=== PATIENT | female | born 1940 | race Caucasian/White ===

== ENCOUNTER 2020-01-24 10:59 | Observation (INO) ==
[2020-01-24] MEDS ORDERED: BUPIVACAINE 0.25% 30 ML VIAL ONE (11:29)
[2020-01-24] MEDS ORDERED: LIDOCAINE HCL 1% 20 ML VIAL ONE (11:29)
[2020-01-24] MEDS ORDERED: BACITRACIN INJ 50,000 UNIT VIAL ONE (11:30)
--- NOTE | 2020-01-24 11:53 | History & Physical Bridge Note ---
Date of Service January 24, 2020 History & Physical Bridge Note I have examined the patient, reviewed the History & Physical and in the interval since the performance of the History & Physical I have noted the following changes of clinical significance: pt has agreed to a pacemaker; consents signed
--- NOTE | 2020-01-24 11:53 | Pre Anesthesia Assessment ---
Date of Service January 24, 2020 Pre Sedation Assessment Vital Signs Temp Pulse Resp BP Pulse Ox 01/24/20 11:18 36.9 C 72 16 158/91 H 99 Cardiovascular RRR, no murmur, no edema Respiratory normal respiratory effort, lungs clear to auscultation Pre-Sedation Airway Assessment Smoking Status: Never smoker Thyromental Distance: < 3.5 Finger Breadths Mallampati Class: II ASA: ASA3 NPO Status Date of Last Intake of Fluids: 01/23/20 Date of Last Intake of Solid Food: 01/23/20 Procedure Planning Contraindications for Sedation: none Current Medications Reviewed: Yes Notes The planned sedation has been discussed with the patient. Informed Consent was obtained. I have identified the patient, determined the appropriateness of sedation and have assessed the patient immediately prior to the procedure. All medicine(s) and interventions are by my order.
[2020-01-24] MEDS ORDERED: methylPREDNISolone 125 MG/2 ML VIAL ONE (11:58)
[2020-01-24] MEDS ORDERED: DiphenhydrAMINE HCL 50 MG/ML VIAL ONE (11:58)
[2020-01-24] MEDS ORDERED: CEFAZOLIN 250 MG/ML 1 GM VIAL ONE (11:59)
[2020-01-24] MEDS ORDERED: fentaNYL citrate 100 MCG/2 ML VIAL ONE (11:59)
[2020-01-24] MEDS ORDERED: MIDAZOLAM HCL 5 MG/ML 1 ML VIAL ONE (11:59)
[2020-01-24] MEDS ORDERED: NOREPINEPHRINE BITARTRATE 1 MG/ML 4 ML VIAL IV ONE (13:55)
[2020-01-24] MEDS ORDERED: DOPamine 400MG / 250ML D5W IV ONE (13:57)
[2020-01-24] MEDS ORDERED: ICU PROTOCOL FOR HYPERGLYCEMIA PRN (15:09)
--- NOTE | 2020-01-24 15:29 | Post Anesthesia Assessment ---
Date of Service January 24, 2020 Post Sedation Assessment Vital Signs Temp Pulse Resp BP Pulse Ox 01/24/20 15:20 72 14 130/89 97 01/24/20 15:05 76 14 119/70 96 01/24/20 14:50 74 18 108/70 98 01/24/20 11:18 36.9 C 72 16 158/91 H 99 Recovery Score Activity: Moves 4 extremities Respiration: Deep Breath/Cough Circulation: +/-20% PreAnes Value Consciousness: Fully Awake Oxygen Saturation: > 92% On Room Air Post Anesthesia Score: 10 Discharge Sedation Level of Care: Fast Track Phase II Post Sedation Plan On clinical assessment, the patient appears to have tolerated the sedation without complications. Patient is recovering as anticipated. Patient will continue to be monitored by nursing and may be discharged when sedation discharge criteria are met per below protocol. Upon Completions of procedure up to 15 minutes continue every 5 minute vital signs and the P.A.R. score; then discharge to a Phase I or Fast Track to Phase II per the following guidelines: * Discharge Patient to appropriate Phase II area if PAR is 8 or greater or return to pre- procedure baseline. The post - procedure orders will be as directed. * If PAR score is less than 8 or not return to pre-procedure baseline then patient will follow Phase I monitoring till PAR is reached for Phase II. The Phase I may be done in procedure room or may call to secure a Phase I area. * If naloxone or flumazenil are used for reversal, hold in Phase I for continued monitoring from when last reversal dose was given for a minimum of 60 minutes or longer pending the nurse and/or physician discretion of patient condition before discharge to Phase II. Please call the Sedation Physician to re-evaluate and complete post-note for discharge to Phase II area. Do NOT discharge from procedure sedation or Phase 1 until post- sedation evaluation note is complete by procedure /sedation MD Sedation Discharge Instructions to be given to the patient at discharge to home.
--- NOTE | 2020-01-24 15:34 | Operative Report ---
Post Operative Report Pre & Post Diagnosis Intermittent CHB Operation Date: 01/24/20 12:00 <No data on this case meets the specified criteria> I identified the patient and participated in the time-out.: Yes Procedure Operation Date: 01/24/20 12:00 Actual Procedures p Pacer with A/V Leads (Dual) - DO chuck Dang Bundle of his Recording - DO chuck Dang Venogram, Unilateral - Jacki Hugo DO Surgeon Jacki Hugo DO Slate Trimmer none Estimated Blood Loss 20 Findings Consistent with Post-Op Diagnosis Fluids 300cc Specimens none Anesthesia Type MAC Complications none Disposition Disposition: Surgical ICU Indications Intermittent CHB Description of Procedure see official report I attest to the content of the Intraoperative Record and any orders documented therein. Any exceptions are noted below.
[2020-01-24 15:49] LABS: Basophils # (auto) 0.01 K/uL (0-0.2); Basophils % (auto) 0.1 %; Eosinophils # (auto) 0.01 K/uL (0-0.5); Eosinophils % (auto) 0.1 %; Hematocrit (blood only) 41.6 % (37-47); Hemoglobin 13.9 g/dL (12.0-16.0); Lymphocytes # (auto) 0.51 K/uL (1.2-3.4); Lymphocytes % (auto) 7.4 %; Mean Corpuscular Hemoglobin 30.2 pg (25-34); Mean Corpuscular Volume 90.4 fL (80-100); Monocytes # (auto) 0.05 K/uL (0.11-0.59); Monocytes % (auto) 0.7 %; Neutrophils # (auto) 6.29 K/uL (1.4-6.5); Neutrophils % (auto) 91.7 %; Platelet Count 162 K/uL (130-400); RDW Coefficient of Variation 13.4 % (11.5-14.5); RDW Standard Deviation 43.5 fL (36.4-46.3); White Blood Count 6.87 K/uL (4.8-10.8)
[2020-01-24 15:56] LABS: Mean Corpuscular Hgb Conc 33.4 g/dL (32-36)
[2020-01-24 16:03] LABS: INR 1.1 (0.9-1.1); Partial Thromboplastin Ratio 0.9; Partial Thromboplastin Time 24.5 Seconds (21.0-31.0); Prothrombin Time 11.5 Seconds (9.0-12.0)
[2020-01-24 16:07] LABS: Albumin Level 3.8 gm/dl (3.4-5.0); BUN Creatinine Ratio 22.7 (10-20); Calcium 9.5 mg/dl (8.5-10.1); Creatinine Clr Calc Pharmacy 51.1 ml/min; Est GFR (African American) 78.8; Potassium 3.8 mmol/L (3.5-5.1)
[2020-01-24 16:10] LABS: Albumin Globulin Ratio 1.1 (0.9-2); Bilirubin,Total 0.4 mg/dl (0.2-1); Globulin 3.3 gm/dl (2.5-4.0); Total Protein 7.1 gm/dl (6.4-8.2)
--- NOTE | 2020-01-24 17:54 | Critical Care Consultation ---
Date of Consultation January 24, 2020 Assessment & Plan (1) Tachy-barbie syndrome: --Hypotension transient Could be from the conscious sedation medication fentanyl/midazolam which the patient got during the procedure Patient responded to fluids Would continue with the same. If the patient does not respond to fluid then will think about starting the patient on Levophed Patient had echo done which showed ejection fraction 65-70%, no pericardial effusion and normal right side. There are no clear signs of hematoma on physical exam. I will order CBC with BMP to make sure there is no significant drop in hemoglobin. --History of heart block Status post permanent pacemaker placement today. It was a complicated procedure. Good lung sounds are appreciated bilaterally We will order a chest x-ray to rule out pneumothorax. Patient is not complaining of any chest pain I doubt that is 1 of the etiology --History of dyslipidemia Continue with pravastatin --Prophylaxis VTE: IPC's GI: Protonix Lines: Peripheral Diet: Regular Plan: Continue monitoring for blood pressure. Fall precautions. Follow CBC as well as CMP. Follow-up chest x-ray I have personally spent 43 minutes of critical care time in the direct management of this patient. This is a life/limb threatening event. This includes time spent evaluating patient, direct bedside care, chart review, placing orders, interpretation of diagnostic studies, discussion with consultants, patient, and family members, as well as other required patient management activities. This time is exclusive of all separately billable procedures, and teaching time and separate from and in addition to any other critical care service time. Please note the above document was generated using voice recognition software. It may contain grammatical, syntax or spelling errors. (2) Hypotension: History of Present Illness Attending Physician: Jacki Hugo DO History of Present Illness 79-year-old female with past medical history of dyslipidemia, GERD came for same-day procedure to have permanent pacemaker placed in as she has history of heart block. The procedure was prolonged as it was a complicated procedure. During the procedure she got total of 4 mg of Versed and 100 MCG of fentanyl. There was an episode where the patient systolic blood pressure went to 70s. Patient was given bolus fluid 750mL to 1000 L to which she responded. Patient's baseline blood pressure is 110 systolic. Signout was given by Dr. Fountain. Patient was sent to ICU to monitor. At the time of examination in the ICU. Patient denied any dizziness, no headache, no blurry vision, no nausea, no vomiting. She was able to move all her extremities. Denies any blurry vision. Her blood pressure at the time of initiation of examination was systolic in the 89. By the end of examination her systolic blood pressure went down to 73. She was given a bolus of 500 mL fluid at that time and her systolic blood pres sure improved up to 110. Patient is a lifetime non-smoker, no illicit drug use, social alcohol. There was also equivocal possibility of loss of 1.5 cm radiolucent plastic catheter during the procedure. Allergies Allergy/AdvReac Type Severity Reaction Status Date / Time Iodinated Contrast Media Allergy Severe IVP Verified 01/24/20 15:42 DYE~Passed out, ENDED UP IN ICU FOR A WEEK. naproxen [From Aleve] AdvReac Unknown PER PT--MD Verified 01/24/20 15:42 TOLD NOT TO TAKE AGAIN. Home Medications Home Medications Medication Instructions Recorded Confirmed Type [place]-3 1 cap PO TIDM 01/12/18 01/24/20 History loratadine [Claritin] 10 mg PO QAM 01/12/18 01/24/20 History meclizine 12.5 mg PO TID PRN 01/12/18 01/24/20 History pantoprazole 40 mg PO DAILY 01/12/18 01/24/20 History pravastatin 10 mg PO HS 01/12/18 01/24/20 History fluocinolone acetonide oil 1 drp OTIC (EAR) DAILY 01/24/20 01/24/20 History lorazepam 0.5 mg PO DAILY PRN 01/24/20 01/24/20 History polyethylene glycol 3350 [Miralax] 17 g PO DAILY PRN 01/24/20 01/24/20 History Patient History Medical History (Updated 01/24/20 @ 18:01 by Luanne Russell MD) Anemia Claustrophobia GERD (gastroesophageal reflux disease) Hyperlipidemia Hypertension Migraine OVER 30 YEARS AGO Osteoarthritis Stricture of ureter REPAIR LEFT SIDE Syncope LIGHT-HEADED AND FAINTS Vertigo Surgical History History of bladder surgery bladder tack History of bunionectomy RT/LEFT AND RT/LEFT TOE FUSION History of cataract surgery RIGHT History of cholecystectomy History of colonoscopy History of prolapse of bladder History of repair of rotator cuff RT History of tooth extraction History of total abdominal hysterectomy and bilateral salpingo-oophorectomy Family History Father Myocardial infarction Mother Breast cancer Social History Smoking Status: Never smoker Second Hand Exposure: No; Hx Alcohol Use: No Hx Substance Use: No Preferred Language: Tajik Communication Ability: Effective Hospital Aides And Assistants Teacher Required: No Beliefs That Will Affect Care: None Current Living Situation: Spouse 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 Safe at Home: Yes Safety Concerns: Feels Safe At This Time Review of Systems Review of Systems: All systems reviewed & are unremarkable except as noted in HPI & below Physical Exam Physical Exam: Constitutional: No acute distress HEENT: EOMI, PERRLA Respiratory system: Good air entry bilaterally, no wheeze, no rhonchi, no crackles CVS: S1-S2 positive, no murmurs or gallops, positive left-sided pacemaker Abdomen: Soft, nontender, nondistended, positive bowel sounds x4 Extremities: +2 pulses bilaterally radialis/ dorsalis pedis, no cyanosis, no edema Neuro: Awake alert oriented x3 Psych: Normal mood and affect G/U: No Carballo Skin: no rashes, warm and dry Lymphatic: no cervical or axillary lymphadenopathy Results & Data Results & Data ([facility]) Vital Signs (Past 12 Hours) Vital Signs Temp Pulse Pulse Resp BP BP Pulse Ox 01/24/20 16:50 93 H 19 96 01/24/20 16:45 97 H 17 102/59 L 95 01/24/20 16:40 94 H 16 96 01/24/20 16:30 94 H 21 109/71 96 01/24/20 16:20 84 17 97 01/24/20 16:15 85 13 114/68 96 01/24/20 16:10 86 21 96 01/24/20 16:00 88 16 122/78 98 01/24/20 15:55 87 20 01/24/20 15:53 37 C 126/79 01/24/20 15:50 37 C 83 14 122/78 97 01/24/20 15:20 72 14 130/89 97 01/24/20 15:05 76 14 119/70 96 01/24/20 14:50 74 18 108/70 98 01/24/20 11:18 36.9 C 72 16 158/91 H 99 01/24/20 15:39 01/24/20 15:39 Coding Level of Care Code Critical Care 1st 30-74 mins Diagnoses Tachy-barbie syndrome I49.5 Hypotension I95.9 Time Spent (min) 43
[2020-01-24] MEDS ORDERED: SODIUM CHLORIDE 0.9% 1000ML 500 ML IV ONE (18:10)
[2020-01-24 18:50] LABS: Basophils # (auto) 0.01 K/uL (0-0.2); Basophils % (auto) 0.1 %; Hematocrit (blood only) 36.8 % (37-47); Hemoglobin 12.3 g/dL (12.0-16.0); Immature Granulocytes # (auto) 0.01 K/uL (0.00-0.02); Immature Granulocytes % (auto) 0.1 %; Lymphocytes # (auto) 0.47 K/uL (1.2-3.4); Lymphocytes % (auto) 4.7 %; Mean Corpuscular Hemoglobin 29.9 pg (25-34); Mean Corpuscular Hgb Conc 33.4 g/dL (32-36); Mean Corpuscular Volume 89.5 fL (80-100); Mean Platelet Volume 10.7 fL (7.4-10.4); Monocytes # (auto) 0.08 K/uL (0.11-0.59); Monocytes % (auto) 0.8 %; Neutrophils # (auto) 9.51 K/uL (1.4-6.5); Neutrophils % (auto) 94.3 %; Platelet Count 153 K/uL (130-400); RDW Coefficient of Variation 13.2 % (11.5-14.5); RDW Standard Deviation 43.3 fL (36.4-46.3); Red Blood Count 4.11 M/uL (4.2-5.4); White Blood Count 10.08 K/uL (4.8-10.8)
[2020-01-24 19:07] LABS: Albumin Level 3.3 gm/dl (3.4-5.0); BUN Creatinine Ratio 22.3 (10-20); Calcium 8.4 mg/dl (8.5-10.1); Creatinine Clr Calc Pharmacy 48.7 ml/min; Est GFR (African American) 74.5; Est GFR (Non-African American) 64.3; Potassium 3.7 mmol/L (3.5-5.1)
[2020-01-24 19:09] LABS: Albumin Globulin Ratio 1.1 (0.9-2); Bilirubin,Total 0.3 mg/dl (0.2-1); Globulin 2.9 gm/dl (2.5-4.0); Total Protein 6.2 gm/dl (6.4-8.2)
--- NOTE | 2020-01-24 19:27 | Electrocardiogram Report ---
Test Reason : Blood Pressure : / mmHG Vent. Rate : 083 BPM Atrial Rate : 083 BPM P-R Int : 206 ms QRS Dur : 096 ms QT Int : 370 ms P-R-T Axes : 046 -19 204 degrees QTc Int : 434 ms Normal sinus rhythm Minimal voltage criteria for LVH, may be normal variant ( Ham product ) Abnormal ECG When compared with ECG of 15-DEC-2019 07:36, No significant change was found Confirmed by Jarrod Dangelo ([id number]) on 01/24/2020 7:27:29 PM Referred By: Jacki Hugo Confirmed By:Sumit Dangelo
--- NOTE | 2020-01-24 20:31 | XRay Report ---
XR chest 1V portable HISTORY: 79 years-old Female s/p pacer status post placement of a left subclavian pacer COMPARISON: None TECHNIQUE: Portable AP view of the chest FINDINGS: Cardiomediastinal and hilar silhouettes are within normal limits. Mild right hemidiaphragmatic elevat ion. Dual-lead left subclavian pacer. No postprocedural pneumothorax. There is no pleural effusion, a irspace consolidation or overt pulmonary edema. Bones of the chest appear grossly intact. IMPRESSION: Left subclavian pacer. No postprocedural pneumothorax. ACT 112: Negative or not required by law. The above report was generated using voice recognition software. It may contain grammatical, syntax o r spelling errors. Electronically signed by: Chan Chaves M.D. 01/24/2020 8:30 PM
[2020-01-24] MEDS ORDERED: PRAVASTATIN SOD 10 MG TAB PO SCH (21:00)
[2020-01-25 05:04] LABS: Hematocrit (blood only) 36.1 % (37-47); Hemoglobin 12.3 g/dL (12.0-16.0); Mean Corpuscular Hemoglobin 30.4 pg (25-34); Mean Corpuscular Hgb Conc 34.1 g/dL (32-36); Mean Corpuscular Volume 89.1 fL (80-100); Mean Platelet Volume 10.5 fL (7.4-10.4); Platelet Count 157 K/uL (130-400); RDW Coefficient of Variation 13.2 % (11.5-14.5); RDW Standard Deviation 43.1 fL (36.4-46.3); Red Blood Count 4.05 M/uL (4.2-5.4); White Blood Count 9.49 K/uL (4.8-10.8)
[2020-01-25 05:33] LABS: BUN Creatinine Ratio 26.7 (10-20); Calcium 8.8 mg/dl (8.5-10.1); Creatinine Clr Calc Pharmacy 64.2 ml/min; Est GFR (African American) 98.8; Est GFR (Non-African American) 85.2; Magnesium 1.9 mg/dl (1.8-2.4); Phosphorus 3.1 mg/dl (2.5-4.9); Potassium 3.8 mmol/L (3.5-5.1)
--- NOTE | 2020-01-25 07:19 | XRay Report ---
XR chest 1V portable CLINICAL HISTORY: f/u COMPARISON STUDY: Chest radiograph January 24, 2020. FINDINGS: Lung volumes are normal. Lungs are clear. There is no pneumothorax or pleural effusion. Car diac size is normal. Mediastinal contours are normal. There is no evidence for pulmonary edema. Dual- lead left subclavian pacemaker is in place. There is old deformity of the proximal left humerus. IMPRESSION: No acute cardiopulmonary findings. ACT 112: Negative or not required by law. Electronically signed by: Samuel Tapia M.D. 01/25/2020 7:18 AM
--- NOTE | 2020-01-25 08:37 | Critical Care Progress Note ---
Date of Service January 25, 2020 Assessment & Plan (1) Tachy-barbie syndrome: --Hypotension transient Likely from the conscious sedation medication fentanyl/midazolam which the patient got during the procedure Patient responded to fluids Patient had echo done which showed ejection fraction 65-70%, no pericardial effusion and normal right side. There are no clear signs of hematoma on physical exam. CBC did not show any drop in hemoglobin. Chest x-ray did not show any signs of pneumothorax. --History of heart block Status post permanent pacemaker placement today. It was a complex procedure. --History of dyslipidemia Continue with pravastatin --Prophylaxis VTE: IPC's GI: Protonix Lines: Peripheral Diet: Regular Plan: Patient is hemodynamically stable. She did not need any vasopressor support. The only thing she needed was a 500 bolus which was given late yesterday evening. Denies any dizziness. She sat on a chair without any issues. Had a breakfast. H&H is stable. The most likely likelihood of her hypertension was conscious sedation medication. I think patient is stable enough to be sent to a telemetry floor. I have personally spent 31 minutes of critical care time in the direct management of this patient. This is a life/limb threatening event. This includes time spent evaluating patient, direct bedside care, chart review, placing orders, interpretation of diagnostic studies, discussion with consultants, patient, and family members, as well as other required patient management activities. This time is exclusive of all separately billable procedures, and teaching time and separate from and in addition to any other critical care service time. Please note the above document was generated using voice recognition software. It may contain grammatical, syntax or spelling errors. (2) Hypotension: Admission and Anticipated Discharge Date Admission Date: January 24, 2020 Subjective Patient seen and examined at bedside. No acute distress, no adverse events overnight. Patient was sitting on the chair early in the morning. She had her breakfast today on the bed. Patient seen and examined while she was on the bed. Denies any dizziness or lightheadedness. No chest pain. Does complain of some chest tightness. Denies any shortness of breath. No wheezing, no headache, no nausea or vomiting. Blood pressure has been stable since yesterday evening. Review of Systems 2 Review of Systems: All systems reviewed & are unremarkable except as noted in Subjective Physical Exam Physical Exam: Constitutional: No acute distress HEENT: EOMI, PERRLA Respiratory system: Good air entry bilaterally, no wheeze, no rhonchi, no crackles CVS: S1-S2 positive, no murmurs or gallops, positive left-sided pacemaker Abdomen: Soft, nontender, nondistended, positive bowel sounds x4 Extremities: +2 pulses bilaterally radialis/ dorsalis pedis, no cyanosis, no edema Neuro: Awake alert oriented x3 Psych: Normal mood and affect G/U: No Carballo Skin: no rashes, warm and dry Lymphatic: no cervical or axillary lymphadenopathy Results & Data Results & Data ([facility]) Vital Signs (Past 12 Hours) Vital Signs Temp Pulse Resp BP Pulse Ox 01/25/20 07:00 69 17 113/71 99 01/25/20 06:00 81 17 128/68 97 01/25/20 05:10 72 18 120/70 98 01/25/20 05:00 71 18 120/70 95 01/25/20 04:00 36.6 C 71 16 135/66 99 01/25/20 03:00 71 12 117/59 L 95 01/25/20 02:00 60 10 L 100/63 95 01/25/20 01:00 75 14 107/67 97 01/25/20 00:00 36.7 C 76 14 110/67 94 01/24/20 23:00 69 15 117/67 97 01/24/20 22:30 74 12 116/63 94 01/24/20 22:00 70 16 104/63 94 01/24/20 21:30 74 21 106/67 96 01/24/20 21:00 74 19 114/63 94 01/24/20 20:45 36.7 C 79 22 103/69 96 01/25/20 04:51 01/25/20 04:51 Coding Level of Care Code Critical Care 1st 30-74 mins Diagnoses Tachy-barbie syndrome I49.5 Hypotension I95.9 Time Spent (min) 31
--- NOTE | 2020-01-25 08:56 | Discharge Summary ---
Date of Service January 25, 2020 Admission HPI Per Admitting Provider Pt admitted for elective ppm due to intermittent CHB Admission Exam Per Admitting Provider aaox3, NAD NC/AT, EOMI Supple No JVD Nrl S1/S2, No murmur CTA b/l no w/r/r soft nt/nd no LE edema b/l skin intact no focal deficits Principal Diagnosis Intermittent CHB s/p ppm Discharge Exam aaox3, NAD NC/AT, EOMI Supple No JVD Nrl S1/S2, No murmur CTA b/l no w/r/r soft nt/nd no LE edema b/l skin intact no focal deficits left pectoral incision intact, no hematoma mild ecchymosis Discharge Data Allergies Allergy/AdvReac Type Severity Reaction Status Date / Time Iodinated Contrast Media Allergy Severe IVP Verified 01/24/20 15:42 DYE~Passed out, ENDED UP IN ICU FOR A WEEK. naproxen [From Aleve] AdvReac Unknown PER PT--MD Verified 01/24/20 15:42 TOLD NOT TO TAKE AGAIN. Consultations 01/24/20 15:09 Consult Case Management - Discharge Planning Routine 01/24/20 18:16 Consult Mechanic Driver Routine Procedures Performed Operation Date: 01/24/20 12:00 Actual Procedures p Pacer with A/V Leads (Dual) - DO chuck Dang Bundle of his Recording - DO chuck Dang Venogram, Unilateral - Jacki Hugo DO Ordered Studies 01/24/20 07:24 CL Cath Imgs for PACS use only Routine 01/24/20 08:15 EP Lab Images for PACS ONCE Hospital Course (1) Tachy-barbie syndrome: (2) Intermittent complete heart block: Total Time Total Time Spent Total Time Spent (In Minutes): 40 Total Time Includes: Examination of the Patient, Discharge Planning, Medication Reconciliation and Other Discharge Plan Discharge Items Patient Disposition: Home - Self-Care Reason For Visit: DUAL CHAMBER PACER Discharge Diagnosis: Intermittent CHB s/p ppm Condition on Discharge: Good Activity: As commented below Activity Comment: do not lift the left elbow over the left shoulder for 1 month Lifting: No more than 10 pounds Lifting Comment: do not lift more than 10 pounds for 2 weeks Bathing: Keep incision dry Bathing Comment: keep dressing on and dry until wound check Driving/Machine Use: Resume 1 day after discharge Non-emergency contact: Braille Teacher Call non-emergency contact if: you have any medication questions Follow-up/Referrals: Katie Acosta DO [Primary Care Provider] - Diet: Heart Healthy Addtl Attending Provider Instructions: device and wound check at [facility] next week-the office will call you with a time and day Pending Studies at Discharge: No Stand-Alone Forms: My [facility], Smoking Cessation Medications and DC Order Prescriptions: Continued meclizine 12.5 mg Tablet 12.5 mg PO TID PRN (Reason: Vertigo) RF: 0 pravastatin 10 mg Tablet 10 mg PO HS RF: 0 pantoprazole 40 mg Tablet,Delayed Release (Dr/Ec) 40 mg PO DAILY RF: 0 loratadine [Claritin] 10 mg Tablet 10 mg PO QAM RF: 0 [place]-3 350 mg-235 mg- 90 mg-597 mg Capsule,Delayed Release(Dr/Ec) 1 cap PO TIDM RF: 0 fluocinolone acetonide oil 0.01 % Drops 1 drp otic (ear) DAILY RF: 0 lorazepam 0.5 mg Tablet 0.5 mg PO DAILY PRN (Reason: Anxiety) RF: 0 polyethylene glycol 3350 [Miralax] 17 gram Powder In Packet 17 g PO DAILY PRN (Reason: Constipation) RF: 0 Discharge Orders: Discharge Order (Routine); Ordered 01/25/20 Ordered By: Jacki Hugo Admission Data Admit Date/Time: 01/24/20 12:15 Attending Provider: Jacki Hugo Admit Provider: Quentin Fountain Primary Care Provider: Katie Acosta Other Providers: Luanne Russell
[2020-01-25] MEDS ORDERED: PANTOprazole 40 MG TAB PO SCH (09:00)
--- NOTE | 2020-02-02 13:57 | Operative Report (OR) ---
DATE OF OPERATION: 01/24/2020 PREOPERATIVE DIAGNOSES: Intermittent complete heart block and syncope. POSTOPERATIVE DIAGNOSES: Intermittent complete heart block and syncope. PROCEDURE: Dual chamber rate responsive permanent pacemaker under fluoroscopic guidance. SURGEON: Jacki Hugo DO. ASSISTANTS: None. ANESTHESIA: Monitored conscious sedation administered under my supervision by Elizabeth Minor. Start time 1213, end time 1440. Total of 4 mg of Versed, 100 mcg of fentanyl. INTRAVENOUS FLUIDS: 300 mL. ADDITIONAL MEDICINES: 50 mg of Benadryl and 125 mg of Solu-Medrol. INTRAVENOUS CONTRAST: 10 mL. ANTIBIOTICS: 1 gram of Ancef provided. ESTIMATED BLOOD LOSS: 20 mL. URINE OUTPUT: None. SPECIMENS: None. FINDINGS: See below. DRAINS: None. INDICATIONS: This is a 79-year-old female with past medical history for sinus bradycardia, hypertension, vasovagal syncope, paroxysmal atrial fibrillation, hyperlipidemia, gastroesophageal reflux disease, vertigo and intermittent complete heart block. Due to the syncope and intermittent complete heart block, she was recommended a dual chamber pacemaker. CONSENT: Consent was obtained prior to the patient going into the electrophysiology lab. The patient was informed of the risks, benefits and alternatives to procedure. Risks include but not limited to sudden cardiac , cardiac arrhythmias, cerebrovascular accident, myocardial infarction, injury to the blood vessels, chamber of the heart, lung, bleeding, and infection. The patient understood these risks and agreed to the procedure as planned. Informed consent was obtained. DESCRIPTION OF THE PROCEDURE: The patient was brought into the electrophysiology lab in a fasting state. She was connected to continuous heel nailing machine operator. Timeout was performed to ensure patient identity and procedure correctly. The patient was prepped and draped over the left infraclavicular space in normal surgical standard fashion. Monitored conscious sedation was given throughout the procedure for patient's comfort level. [place] precautions were maintained throughout the procedure. 10 mL of 1% lidocaine-bupivacaine mixture were given in the left deltopectoral groove. Incision was made in the left deltopectoral groove. Blunt dissection was performed down to identify the cephalic vein. Cephalic vein was identified and isolated using 0 silk ties. The vein was nicked with an 11 blade and a guidewire was inserted without any resistance. Of note, when I was inserting the guidewire, I think the plastic tip to the guidewire ended up being advanced in through the venous system as well. It was unable to be seen under fluoroscopy, but I did do a peripheral venogram just to see if I could see anything, but I could not. An 8-Namibian sheath was inserted over the guidewire without any resistance. Guidewire and dilator removed. A second wire was advanced through the sheath to allow for retained venous access. Sheath was removed, flushed, and then it was reinserted over one of the guidewires. The guidewire and dilator removed and the right ventricular lead was advanced into right ventricle, positioned in right ventricular apex. I did have to reposition it a few times. Ultimately, we had adequate pacing and sensing thresholds and no diaphragmatic stimulation with high output pacing. The 8-Namibian sheath was peeled away and lead was fixated to pectoralis muscle using 0 silk suture. Of note, I initially did try doing a left bundle lead, but I was not getting very adequately on the septum and since there was a delay in the procedure looking for the plastic cheater tip of the guidewire, I have to just do a regular standard. A second 7-Namibian sheath was inserted over the retained guidewire without any resistance. Guidewire and dilator removed. The right atrial lead was then advanced into right atrium and positioned into the right atrial appendage under fluoroscopic guidance. There was adequate pacing and sensing thresholds and no diaphragmatic stimulation with high output pacing. The 7-Namibian sheath was peeled away and lead was fixated to pectoralis muscle using 0 silk suture. A pacemaker pocket was created using blunt dissection over the pectoralis muscle within the pectoral fascia. The pocket was flushed with copious amounts of bacitracin saline wash and inspected for hemostasis. Pulse generator was then attached to the lead making sure that the pins were in appropriate position, passed set screws and set screws were all tightened. The pulse generator was then placed in the TYRX pouch followed then by being placed in the pocket, making sure the leads were lying flat beneath the device. The incision was then closed in a 3-layer fashion using a 2-0 Vicryl interrupted suture followed by 3-0 Vicryl interrupted suture, followed by 4-0 Monocryl running stitch and Dermabond was applied followed by a Telfa and micropore dressing. EQUIPMENT: 1. Pulse generator is a [employer] [place] XT DR RADHA Rodgers [id number], serial number [id number]. 2. TYRX pouch is reference number [id number], lot number [id number], expiration 07/25/2020. 3. Right atrial lead Medtronic 5076-52 cm, serial number [id number]. 4. Right ventricular lead, Medtronic 5076-58 cm, serial number [id number]. INTRAOPERATIVE TESTIN. Right atrial lead: P waves 2.6 millivolts, impedance 437 ohms, threshold 0.5 volts at 0.4 milliseconds. 2. Right ventricular lead: R waves 7.5 millivolts, impedance 969 ohms, threshold 1.25 volts at 0.4 milliseconds. FINAL MEASUREMENTS THROUGH THE DEVICE: 1. Right atrial lead: P waves 3.6 millivolts, impedance 456 ohms, threshold 0.5 volts at 0.4 milliseconds. 2. Right ventricular lead: R waves 7 millivolts, impedance 912 ohms, threshold 0.75 volts at 0.4 milliseconds. FINAL PARAMETERS: MVP-R 60/130, right atrial amplitude 3.5 volts, pulse width 0.4 milliseconds, sensitivity 0.3 millivolts. Right ventricular amplitude 3.5 volts, pulse width 0.4 milliseconds, sensitivity 1.2 millivolts. IMPRESSION: Successful implantation of a dual chamber rate responsive permanent pacemaker under fluoroscopic guidance secondary to intermittent complete heart block. PLAN: Monitor patient overnight, 12-lead ECG, chest x-ray. She is not allowed to lift left elbow or left shoulder for 1 month. She cannot lift more than 10 pounds with the left arm for 2 weeks. She is to leave the dressing on and dry until her wound check next week. I attest to the content of the Intraoperative Record and any orders documented therein. Any exceptions are noted below. GWYN
== END 2020-01-25 09:45 | disposition home or self-care (01) ==
LOC: EP 10:59 → 1E 12:15 → INTOOBSV 12:15

== ENCOUNTER 2021-07-12 05:59 | Observation (INO) ==
[2021-07-12 06:24] LABS: Basophils # (auto) 0.02 K/uL (0-0.2); Basophils % (auto) 0.4 %; Hematocrit (blood only) 40.8 % (37-47); Hemoglobin 13.8 g/dL (12.0-16.0); Lymphocytes # (auto) 1.18 K/uL (1.2-3.4); Lymphocytes % (auto) 23.7 %; Mean Corpuscular Hemoglobin 30.7 pg (25-34); Mean Corpuscular Hgb Conc 33.8 g/dL (32-36); Mean Corpuscular Volume 90.9 fL (80-100); Mean Platelet Volume 10.3 fL (7.4-10.4); Monocytes % (auto) 10.1 %; Neutrophils # (auto) 3.07 K/uL (1.4-6.5); Neutrophils % (auto) 61.8 %; Platelet Count 158 K/uL (130-400); RDW Coefficient of Variation 13.2 % (11.5-14.5); RDW Standard Deviation 43.6 fL (36.4-46.3); Red Blood Count 4.49 M/uL (4.2-5.4); White Blood Count 4.97 K/uL (4.8-10.8)
[2021-07-12] MEDS ORDERED: SODIUM CHLORIDE 0.9% 1000ML 500 ML IV ONE (06:45)
[2021-07-12] MEDS ORDERED: ASPIRIN CHEW 324 MG PO STA (06:45)
--- NOTE | 2021-07-12 06:45 | Emergency Department Note ---
Impression & Plan Chest pain, Vertigo ED Provider Note NAME: ALEX CLARK AGE: 80 SEX: F : 1940 ARRIVES VIA: Ambulance INFORMANT: Patient, ED PROVIDER(S): Armando Cobb DO CHIEF COMPLAINT: Chest pain and dizziness HPI: Patient is a 80-year-old female with a past medical history of tachybradycardia syndrome, SVT, heart block with ICD in place, hypertension, hyperlipidemia, migraines, GERD and vertigo that presents the ER for dizziness. She notes that she woke up this morning around 4 AM with this. She took some meclizine. Shortly after that started and some midsternal chest tightness. That has now resolved. She denies any arm pain or jaw pain. She notes she has been getting some chest tightness off and on for the past 3 weeks. It has been gradually getting worse. Initially says that this has been constant but she further elaborates that it is present nearly every day but comes and goes intermittently. She was given Ativan and Zofran in route. ROS: See above HPI for pertinent positives & negatives. A total of 10 systems reviewed and were otherwise negative. PAST MEDICAL HISTORY:See Below PAST SURGICAL HISTORY:See Below FAMILY HISTORY:See Below SOCIAL HISTORY:See Below HOME MEDICATIONS:See Below ALLERGIES:See Below VITALS:See Below PHYSICAL EXAMINATION: GENERAL: Sitting up in bed, alert, well appearing, well nourished, no distress, non-toxic EYE EXAM: normal conjunctiva. PERRL and EOM's intact. OROPHARYNX: no exudate, no erythema, lips, buccal mucosa, and tongue normal and mucous membranes are moist NECK: supple, no nuchal rigidity, no adenopathy, non-tender LUNGS: Clear to auscultation. Normal chest wall mechanics HEART: no murmurs, S1 normal and S2 normal ABDOMEN: abdomen soft, non-tender, normo-active bowel sounds, no masses, no rebound or guarding. BACK: Back is symmetrical on inspection and there is no deformity, no midline tenderness, no CVA tenderness. SKIN: no rashes and no bruising UPPER EXTREMITIES: upper extremities are grossly normal. LOWER EXTREMITIES: No pitting edema. Calves are equal bilateral NEURO EXAM: Normal sensorium, cranial nerves II-XII intact, normal speech, no weakness of arms, no weakness of legs. No drift. Finger to nose intact. Gross sensation intact. MEDICAL DECISION MAKING: Patient is a 80-year-old female presents ER with above-stated complaint. IV was established blood work was obtained. Labs show no significant leukocytosis or anemia. BMP was unremarkable. LFTs bilirubin and lipase was normal. Troponin was negative. UA was clean. Covid was negative. Patient was completely neurologically intact. No focal deficit. CT head and chest x-ray were unremarkable. EKG with maybe faint subtle changes in V3 and V4 although fairly consistent with previous. Her symptoms of chest pain was fairly convoluted but after multiple conversations she notes it has been off and on for the past 3 weeks. Currently pain-free. She was given aspirin. She took meclizine prior to arrival. Dizziness has improved. She was given IV fluids. With her age and history I do feel it is reasonable to observe her here in the hospital. Discussed with hospitalist for further evaluation. Interrogation is complete but awaiting call from [employer] rep. Triage Nursing notes reviewed. Limited review of prior medical records performed Vital Signs: reviewed and remarkable for no significant abnormalities Differential diagnosis: Differential diagnoses includes but is not limited to acute coronary syndrome, myocardial infarction, pericarditis, pulmonary embolus, aortic dissection, pneumonia, pneumothorax, musculoskeletal, shingles, esophageal. ER treatment provided: See below Diagnostics interpreted by me: ECG: Atrial paced rate of [address] wave changes in the high lateral leads ST wave changes in V3 through V6 No significant change from previous Cardiac Monitoring: An order was placed for continuous cardiac monitoring. The monitor shows a rate of 70 with sinus rhythm. Laboratory studies: As stated above and show below. Imaging studies: CT head was negative Portable AP upright 1 view of the chest was unremarkable Consultation(s): Discussed with the [facility] hospitalist Dr. King Procedures: none Critical Care: None Past Med/Surg History Medical History (Updated 07/12/21 @ 09:37 by Armando Cobb DO) Anemia Claustrophobia GERD (gastroesophageal reflux disease) Hyperlipidemia Hypertension Migraine OVER 30 YEARS AGO Osteoarthritis Stricture of ureter REPAIR LEFT SIDE Syncope LIGHT-HEADED AND FAINTS Vertigo Surgical History History of bladder surgery bladder tack History of bunionectomy RT/LEFT AND RT/LEFT TOE FUSION History of cataract surgery RIGHT History of cholecystectomy History of colonoscopy History of prolapse of bladder History of repair of rotator cuff RT History of tooth extraction History of total abdominal hysterectomy and bilateral salpingo-oophorectomy Family History Father Myocardial infarction Mother Breast cancer Social History Smoking Status: Never smoker Second Hand Exposure: No; Hx Alcohol Use: No Hx Substance Use: No Preferred Language: Dutch Communication Ability: Effective Storage Manager Required: No Beliefs That Will Affect Care: None Current Living Situation: Spouse 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 naproxen [From Aleve] AdvReac Unknown PER PT--MD Verified 07/12/21 08:10 TOLD NOT TO TAKE AGAIN. Home Meds Home Medications Medication Instructions Recorded Confirmed omega 3 350 mg-dha 235 mg-epa 90 2 cap PO BID 01/12/18 07/12/21 mg-fish oil 597 mg capsule,delay rel ([place]-3) pantoprazole 40 mg tablet,delayed 40 mg PO QAM 01/12/18 07/12/21 release apixaban 5 mg tablet (Eliquis) 5 mg PO BID 01/06/21 07/12/21 docusate sodium 100 mg capsule 100 mg PO BIDM 01/06/21 07/12/21 magnesium hydroxide 400 mg/5 mL 400 mg PO DAILY PRN 01/06/21 07/12/21 oral suspension (Milk of Magnesia) vit C 250 mg-vit E 90 mg-zinc 40 1 tab PO BID 01/06/21 07/12/21 mg-copper 1 [id number] capsule (PreserVision AREDS-2) loratadine 10 mg tablet (Claritin) 10 mg PO HS 07/12/21 07/12/21 Results & Data (ED) Vital Signs Vital Signs - 24 hr 07/12/21 05:58 07/12/21 06:04 07/12/21 06:10 Temperature 36.5 C Temperature Source Oral Pulse Rate 89 78 Pulse Rate [Apical] Pulse Rate from SpO2 Sensor 77 Respiratory Rate 20 18 Respiratory Effort / Characteristics Non-Labored Spontaneous Respiratory Depth Normal Respiratory Pattern Blood Pressure 134/90 Blood Pressure [Right Arm] Blood Pressure Mean 104 Blood Pressure Mean [Right Arm] Pulse Oximetry 95 96 98 Oxygen Delivery Method Room Air Room Air Sepsis New/Unexplained Change in Mental Status N/A Sepsis Action Taken by Nursing No Action Required 07/12/21 06:30 07/12/21 06:31 07/12/21 07:00 Temperature Temperature Source Pulse Rate 70 68 65 Pulse Rate [Apical] Pulse Rate from SpO2 Sensor 68 69 62 Respiratory Rate 16 15 15 Respiratory Effort / Characteristics Respiratory Depth Respiratory Pattern Blood Pressure 128/72 112/71 Blood Pressure [Right Arm] Blood Pressure Mean 90 84 Blood Pressure Mean [Right Arm] Pulse Oximetry 95 97 96 Oxygen Delivery Method Room Air Sepsis New/Unexplained Change in Mental Status Sepsis Action Taken by Nursing 07/12/21 07:02 07/12/21 07:33 07/12/21 07:34 Temperature Temperature Source Pulse Rate 70 72 Pulse Rate [Apical] 63 Pulse Rate from SpO2 Sensor 71 Respiratory Rate 20 20 16 Respiratory Effort / Characteristics Non-Labored Spontaneous Respiratory Depth Normal Respiratory Pattern Regular Blood Pressure 132/81 Blood Pressure [Right Arm] 112/71 Blood Pressure Mean 98 Blood Pressure Mean [Right Arm] 84 Pulse Oximetry 95 96 Oxygen Delivery Method Room Air Sepsis New/Unexplained Change in Mental Status Sepsis Action Taken by Nursing 07/12/21 08:00 07/12/21 08:30 07/12/21 09:00 Temperature Temperature Source Pulse Rate 64 62 63 Pulse Rate [Apical] Pulse Rate from SpO2 Sensor 65 Respiratory Rate 19 18 20 Respiratory Effort / Characteristics Respiratory Depth Respiratory Pattern Blood Pressure 120/75 107/70 101/71 Blood Pressure [Right Arm] Blood Pressure Mean 90 82 81 Blood Pressure Mean [Right Arm] Pulse Oximetry 97 96 96 Oxygen Delivery Method Sepsis New/Unexplained Change in Mental Status Sepsis Action Taken by Nursing 07/12/21 09:30 Temperature Temperature Source Pulse Rate 61 Pulse Rate [Apical] Pulse Rate from SpO2 Sensor 60 Respiratory Rate 20 Respiratory Effort / Characteristics Respiratory Depth Respiratory Pattern Blood Pressure 105/67 Blood Pressure [Right Arm] Blood Pressure Mean 79 Blood Pressure Mean [Right Arm] Pulse Oximetry 94 Oxygen Delivery Method Sepsis New/Unexplained Change in Mental Status Sepsis Action Taken by Nursing Laboratory Data Result diagrams: 07/12/21 06:10 07/12/21 06:10 Lab Results 07/12/21 07/12/21 07/12/21 Range/Units 06:10 06:10 06:12 WBC 4.97 (4.8-10.8) K/uL RBC 4.49 (4.2-5.4) M/uL Hgb 13.8 (12.0-16.0) g/dL Hct 40.8 (37-47) % MCV 90.9 (80-100) fL MCH 30.7 (25-34) pg MCHC 33.8 (32-36) g/dL RDW Std Deviation 43.6 (36.4-46.3) fL RDW Coeff of Gale 13.2 (11.5-14.5) % Plt Count 158 (130-400) K/uL MPV 10.3 (7.4-10.4) fL Immature Gran % (Auto) 0.0 % Neut % (Auto) 61.8 % Lymph % (Auto) 23.7 % [place] % (Auto) 10.1 % Eos % (Auto) 4.0 % Baso % (Auto) 0.4 % Neut # (Auto) 3.07 (1.4-6.5) K/uL Lymph # (Auto) 1.18 L (1.2-3.4) K/uL [place] # (Auto) 0.50 (0.11-0.59) K/uL Eos # (Auto) 0.20 (0-0.5) K/uL Baso # (Auto) 0.02 (0-0.2) K/uL Immature Gran # (Auto) 0.00 (0.00-0.02) K/uL Sodium 138 (136-145) mmol/L Potassium 4.0 (3.5-5.1) mmol/L Chloride 107 (98-107) mmol/L Carbon Dioxide 24 (21-32) mmol/L Anion Gap 7 (3-11) BUN 22 (6-23) mg/dl Creatinine 0.58 L (0.6-1.2) mg/dl Est Cr Clr Drug Dosing 68.5 ml/min Est GFR ( Amer) 102.3 ml/min Est GFR (Non-Af Amer) 88.3 ml/min BUN/Creatinine Ratio 37.9 H (10-20) Glucose 107 H (70-99(Fasting)) mg/dl Calcium 8.5 (8.5-10.1) mg/dl Total Bilirubin 0.4 (0.2-1.0) mg/dl AST 23 (13-39) U/L ALT 20 (7-52) U/L Alkaline Phosphatase 55 (34-104) U/L Troponin I < 0.03 (0-0.04) ng/ml Total Protein 6.5 (6.0-8.3) gm/dl Albumin 4.0 (3.4-5.0) gm/dl Globulin 2.5 (2.5-4.0) gm/dl Albumin/Globulin Ratio 1.6 (0.9-2) Lipase 50 (11-82) U/L Urine Color Yellow Urine Appearance Clear (Clear) Urine pH 5.0 (4.5-7.5) Ur Specific [place] 1.014 (1.000-1.030) Urine Protein Negative (Negative) Urine Glucose (UA) Negative (Negative) Urine Ketones Negative (Negative) Urine Blood Negative (Negative) Urine Nitrite Negative (Negative) Urine Bilirubin Negative (Negative) Urine Urobilinogen Negative (Negative) Ur Leukocyte Esterase Negative (Negative) SARS-CoV-2, RNA, NAAT (NEGATIVE) 07/12/21 Range/Units 07:02 WBC (4.8-10.8) K/uL RBC (4.2-5.4) M/uL Hgb (12.0-16.0) g/dL Hct (37-47) % MCV (80-100) fL MCH (25-34) pg MCHC (32-36) g/dL RDW Std Deviation (36.4-46.3) fL RDW Coeff of Gale (11.5-14.5) % Plt Count (130-400) K/uL MPV (7.4-10.4) fL Immature Gran % (Auto) % Neut % (Auto) % Lymph % (Auto) % [place] % (Auto) % Eos % (Auto) % Baso % (Auto) % Neut # (Auto) (1.4-6.5) K/uL Lymph # (Auto) (1.2-3.4) K/uL [place] # (Auto) (0.11-0.59) K/uL Eos # (Auto) (0-0.5) K/uL Baso # (Auto) (0-0.2) K/uL Immature Gran # (Auto) (0.00-0.02) K/uL Sodium (136-145) mmol/L Potassium (3.5-5.1) mmol/L Chloride (98-107) mmol/L Carbon Dioxide (21-32) mmol/L Anion Gap (3-11) BUN (6-23) mg/dl Creatinine (0.6-1.2) mg/dl Est Cr Clr Drug Dosing ml/min Est GFR ( Amer) ml/min Est GFR (Non-Af Amer) ml/min BUN/Creatinine Ratio (10-20) Glucose (70-99(Fasting)) mg/dl Calcium (8.5-10.1) mg/dl Total Bilirubin (0.2-1.0) mg/dl AST (13-39) U/L ALT (7-52) U/L Alkaline Phosphatase (34-104) U/L Troponin I (0-0.04) ng/ml Total Protein (6.0-8.3) gm/dl Albumin (3.4-5.0) gm/dl Globulin (2.5-4.0) gm/dl Albumin/Globulin Ratio (0.9-2) Lipase (11-82) U/L Urine Color Urine Appearance (Clear) Urine pH (4.5-7.5) Ur Specific [place] (1.000-1.030) Urine Protein (Negative) Urine Glucose (UA) (Negative) Urine Ketones (Negative) Urine Blood (Negative) Urine Nitrite (Negative) Urine Bilirubin (Negative) Urine Urobilinogen (Negative) Ur Leukocyte Esterase (Negative) SARS-CoV-2, RNA, NAAT NEGATIVE (NEGATIVE) Administered Medications Discontinued Medications Aspirin (Aspirin Chew 324 Mg) 324 mg PO NOW STA Stop: 07/12/21 06:46 Last Admin: 07/12/21 07:01 Dose: 324 mg Documented by: [id number] Sodium Chloride (Nss 1000ml) 500 mls @ 999 mls/hr IV .Q31M ONE Stop: 07/12/21 07:15 Last Infusion: 07/12/21 07:36 Dose: 0 mls/hr Documented by: [id number] Admin: 07/12/21 07:02 Dose: 999 mls/hr Documented by: [id number] Imaging Data Radiologist's Impression: Chest X-Ray 07/12/21 06:07 XR chest 1V portable CLINICAL HISTORY: Atypical chest pain. COMPARISON STUDY: Chest radiograph January 06, 2021. FINDINGS: Dual lead left subclavian pacemaker is in place. Lung volumes are norm al. Lungs are clear. There is no pneumothorax or pleural effusion. Cardiac size is normal. Mediastinal contours are normal. There is no evidence for pulmonary edema. IMPRESSION: No acute cardiopulmonary findings. No change in appearance of the chest. ACT 112: Negative or not required by law. Electronically signed by: Samuel Tapia M.D. 07/12/2021 7:[address] 07/12/21 06:45 CT OF THE HEAD WITHOUT CONTRAST CLINICAL HISTORY: dizzy COMPARISON STUDY: No previous studies for comparison. CT DOSE: 537.48 mGy.cm TECHNIQUE: Helical axial images of the head were obtained without IV contrast. Automated exposure control was utilized for the study. A dose lowering technique was utilized adhering to the principles of ALARA. FINDINGS: No acute intracranial hemorrhage, midline shift or mass effect is present. The ventricular system is unremarkable. The basal cisterns are patent. No extra-axial collections are present. There are no findings to suggest acute dural sinus thrombosis or acute territorial infarct. No significant calvarial abnormalities are present. Visualized portions of the sinuses and mastoid air cells are clear. IMPRESSION: No acute intracranial findings. ACT 112: Negative or not required by law. Electronically signed by: Samuel Tapia M.D. 07/12/2021 7:50 AM Discharge Plan Visit Data Chief Complaint: Chest Pain Stated Complaint: Dizziness ED Provider: Armando Cobb Discharge Problem: Chest pain, Vertigo Discharge Instructions Interventions: ED Discharge Assessment Last Done: 07/12/21 09:34 Forms Stand Alone Forms: [facility] [place] Prescriptions Prescriptions: No Action pantoprazole 40 mg Tablet,Delayed Release (Dr/Ec) 40 mg PO QAM RF: 0 [place]-3 350 mg-235 mg- 90 mg-597 mg Capsule,Delayed Release(Dr/Ec) 2 cap PO BID RF: 0 magnesium hydroxide [Milk of Magnesia] 400 mg/5 mL Suspension 400 mg PO DAILY PRN (Reason: Constipation) RF: 0 docusate sodium 100 mg capsule 100 mg PO BIDM RF: 0 Eliquis 5 mg tablet 5 mg PO BID RF: 0 PreserVision AREDS-2 250-90-40-1 mg Capsule 1 tab PO BID RF: 0 loratadine [Claritin] 10 mg Tablet 10 mg PO HS RF: 0 Referrals Referrals: Katie Acosta DO [Primary Care Provider] - Discharge Problem: Chest pain Qualifiers: Chest pain type: unspecified Qualified Code(s): R07.9 - Chest pain, unspecified
[2021-07-12 06:46] LABS: Troponin I < 0.03 ng/ml (0-0.04)
[2021-07-12 06:58] LABS: Appearance Urine Clear (Clear); Bilirubin Urine Negative (Negative); Blood Urine Negative (Negative); Color Urine Yellow; Glucose Urine UA Negative (Negative); Ketones Urine Negative (Negative); Leukocyte Esterase Urine Negative (Negative); Nitrite Urine Negative (Negative); Protein Urine Negative (Negative); Specific Gravity Urine 1.014 (1.000-1.030); Urobilinogen Urine Negative (Negative)
[2021-07-12 06:59] LABS: Alanine Aminotransferase 20 U/L (7-52); Albumin Globulin Ratio 1.6 (0.9-2); Alkaline Phosphatase 55 U/L (34-104); Anion Gap 7 (3-11); Aspartate Aminotransferase 23 U/L (13-39); BUN Creatinine Ratio 37.9 (10-20); Bilirubin,Total 0.4 mg/dl (0.2-1.0); Blood Urea Nitrogen 22 mg/dl (6-23); Calcium 8.5 mg/dl (8.5-10.1); Carbon Dioxide 24 mmol/L (21-32); Chloride 107 mmol/L (98-107); Creatinine Clr Calc Pharmacy 68.5 ml/min; Est GFR (African American) 102.3 ml/min; Est GFR (Non-African American) 88.3 ml/min; Globulin 2.5 gm/dl (2.5-4.0); Glucose 107 mg/dl (70-99(Fasting)); Lipase 50 U/L (11-82); Sodium 138 mmol/L (136-145); Total Protein 6.5 gm/dl (6.0-8.3)
--- NOTE | 2021-07-12 07:51 | CT Scan Report ---
CT OF THE HEAD WITHOUT CONTRAST CLINICAL HISTORY: dizzy COMPARISON STUDY: No previous studies for comparison. CT DOSE: 537.48 mGy.cm TECHNIQUE: Helical axial images of the head were obtained without IV contrast. Automated exposure con trol was utilized for the study. A dose lowering technique was utilized adhering to the principles o f ALARA. FINDINGS: No acute intracranial hemorrhage, midline shift or mass effect is present. The ventricular system is unremarkable. The basal cisterns are patent. No extra-axial collections are present. There are no findings to suggest acute dural sinus thrombosis or acute territorial infarct. No significant calvarial abnormalities are present. Visualized portions of the sinuses and mastoid air cells are ciera ar. IMPRESSION: No acute intracranial findings. ACT 112: Negative or not required by law. Electronically signed by: Samuel Tapia M.D. 07/12/2021 7:50 AM
--- NOTE | 2021-07-12 07:53 | XRay Report ---
XR chest 1V portable CLINICAL HISTORY: Atypical chest pain. COMPARISON STUDY: Chest radiograph January 06, 2021. FINDINGS: Dual lead left subclavian pacemaker is in place. Lung volumes are normal. Lungs are clear. There is no pneumothorax or pleural effusion. Cardiac size is normal. Mediastinal contours are normal . There is no evidence for pulmonary edema. IMPRESSION: No acute cardiopulmonary findings. No change in appearance of the chest. ACT 112: Negative or not required by law. Electronically signed by: Samuel Tapia M.D. 07/12/2021 7:51 AM
--- NOTE | 2021-07-12 08:14 | History & Physical Report ---
Date of Service July 12, 2021 Assessment & Plan (1) Chest pain: Plan: Chest Pain: R/O ACS Initial troponin:Negative EKG shows: Atrial paced rhythm with prolonged AV conduction with PVCs, nonspecific ST and T wave abnormality. QTC 427 CXR: No acute cardiopulmonary findings. No change in appearance of the chest. Check resting ECHO Trend serial cardiac enzymes, repeat EKG, fasting lipid panel in AM Started on Aspirin 81 mg daily Resume home statin Cardiology consulted Monitor for arrhythmias Check TSH Pacemaker interrogated in ED Dizziness/Balance issues H/O vestibular disorder, BPPV, orthostatic hypotension Likely secondary to above, Also to rule out Rhythm issues CT head: No acute intracranial findings Monitor in Telemetry for arrhythmia Check Orthostatics Check ECHO, Carotid Ultrasound Fall precautions PT/OT Meclizine as needed Paroxysmal atrial fibrillation History of intermittent complete heart block Sick sinus syndrome S/P Pacemaker Eliquis on hold for possible intervention Consider starting IV heparin versus Eliquis if no plan for intervention. Dyslipidemia Pravastatin held for increased LFTs as outpatient LFTs within normal limits currently Resume pravastatin GERD Continue PPI Nephrolithiasis Currently asymptomatic Follows with urology as outpatient next DVT Px: SCDs for now Resume Eliquis as able Code Status Full Code Disposition PT/OT prior to discharge History of Present Illness Chief Complaint: Chest Pain, Dizziness Primary Care Provider: Katie Acosta DO Patient is a 80-year-old female with history of complete heart block, SSS S/P pacemaker in 2019, paroxysmal atrial fibrillation on chronic anticoagulation with Eliquis, orthostatic hypotension, dyslipidemia, benign positional vertigo, vestibular disorder, macular degeneration, GERD, nephrolithiasis and other medical problems presents with history of ongoing gradually worsening chest pain. Patient states that she has been having retrosternal pressure-like chest pain since 3-week duration which is intermittent associated with intermittent palpitations, burning sensation behind her shoulder blades. She denies any radiation of chest pain, noticed worsening with exertion but no relieving factors. She received aspirin while in ED, which she believes helped with the chest pain and currently chest pain-free. She had pacemaker interrogation while in ED. Reports nausea today but no vomiting. Also states having balance issues since last couple of days where she is swaying to one side with ambulation associated with dizziness which she thinks is different from her usual vertigo. She admits to taking meclizine for dizziness. Her last dose of Eliquis is yesterday at 8 PM. Patient had stress test in 2019 which is negative. Reports that her father in his 50s with MD. He also reports having poor sleep and felt stressful for the past 2 days. Denies any history of SOB, orthopnea, pedal edema, diaphoresis, cough, fever, chills, fall, head trauma, LOC, headache, change in vision, vomiting, abdominal pain, diarrhea, dysuria, hematuria. Allergies Allergy/AdvReac Type Severity Reaction Status Date / Time Iodinated Contrast Media Allergy Severe IVP Verified 07/12/21 08:10 DYE~Passed out, ENDED UP IN ICU FOR A WEEK. naproxen [From Aleve] AdvReac Unknown PER PT-- Verified 07/12/21 08:10 TOLD NOT TO TAKE AGAIN. Home Medications Medication Instructions Recorded Confirmed Type omega 3 350 mg-dha 235 mg-epa 90 2 cap PO BID 01/12/18 07/12/21 History mg-fish oil 597 mg capsule,delay rel (Kelayres-3) pantoprazole 40 mg tablet,delayed 40 mg PO QAM 01/12/18 07/12/21 History release apixaban 5 mg tablet (Eliquis) 5 mg PO BID 01/06/21 07/12/21 History docusate sodium 100 mg capsule 100 mg PO BIDM 01/06/21 07/12/21 History magnesium hydroxide 400 mg/5 mL 400 mg PO DAILY PRN 01/06/21 07/12/21 History oral suspension (Milk of Magnesia) vit C 250 mg-vit E 90 mg-zinc 40 1 tab PO BID 01/06/21 07/12/21 History mg-copper 1 [id number] capsule (PreserVision AREDS-2) loratadine 10 mg tablet (Claritin) 10 mg PO HS 07/12/21 07/12/21 History pravastatin 10 mg tablet 10 mg PO HS 07/12/21 07/12/21 History Past Med/Surg History Medical History Anemia Claustrophobia GERD (gastroesophageal reflux disease) Hyperlipidemia Hypertension Migraine OVER 30 YEARS AGO Osteoarthritis Stricture of ureter REPAIR LEFT SIDE Syncope LIGHT-HEADED AND FAINTS Vertigo Surgical History History of bladder surgery bladder tack History of bunionectomy RT/LEFT AND RT/LEFT TOE FUSION History of cataract surgery RIGHT History of cholecystectomy History of colonoscopy History of prolapse of bladder History of repair of rotator cuff RT History of tooth extraction History of total abdominal hysterectomy and bilateral salpingo-oophorectomy Family History Father Myocardial infarction Mother Breast cancer Social History Smoking Status: Never smoker Second Hand Exposure: No; Hx Alcohol Use: No Hx Substance Use: No Preferred Language: Syriac Communication Ability: Effective [employer] 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: No Beliefs That Will Affect Care: None Current Living Situation: Spouse 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 Safe at Home: Yes Assistive Devices: None Review of Systems Review of Systems: All systems reviewed & are unremarkable except as noted in Subjective Physical Exam Physical Exam: Physical Exam: Vitals signs as noted above General Appearance:Moderately built and nourished, no apparent distress Head: normocephalic, Atraumatic Eyes: normal inspection, EOMI Neck: supple, Trachea midline Respiratory/Chest: Normal breath sounds, CTA, No accessory muscle use, Pacemaker on Left side of chest Cardiovascular: S1, S2, No murmur Abdomen/GI:Soft, Non tender, Bowel sounds present Extremities/Musculoskeletal:normal inspection, no edema Neurologic/Psych:AAOX3, grossly no focal neurological deficits Skin: normal color, warm Results & Data Results & Data ([facility]) Vital Signs (Past 12 Hours) Vital Signs Temp Pulse Pulse Resp BP BP Pulse Ox 07/12/21 08:00 64 19 120/75 97 07/12/21 07:34 72 16 132/81 96 07/12/21 07:33 70 20 07/12/21 07:02 63 20 112/71 95 07/12/21 07:00 65 15 112/71 96 07/12/21 06:31 68 15 128/72 97 07/12/21 06:30 70 16 95 07/12/21 06:10 98 07/12/21 06:04 78 18 96 07/12/21 05:58 36.5 C 89 20 134/90 95 Laboratory Results Short CBC 02/26/22 Range/Units 06:10 WBC 4.97 (4.8-10.8) K/uL Hgb 13.8 (12.0-16.0) g/dL Hct 40.8 (37-47) % Plt Count 158 (130-400) K/uL BMP 07/12/21 06:10 Sodium 138 Potassium 4.0 Chloride 107 Carbon Dioxide 24 BUN 22 Creatinine 0.58 L Glucose 107 H Calcium 8.5 Cardiac Enzymes 07/12/21 Range/Units 06:10 Troponin I < 0.03 (0-0.04) ng/ml Liver Function 07/12/21 Range/Units 06:10 Total Bilirubin 0.4 (0.2-1.0) mg/dl AST 23 (13-39) U/L ALT 20 (7-52) U/L Alkaline Phosphatase 55 (34-104) U/L Albumin 4.0 (3.4-5.0) gm/dl Urine 07/12/21 Range/Units 06:12 Urine Color Yellow Urine Appearance Clear (Clear) Urine pH 5.0 (4.5-7.5) Ur Specific [place] 1.014 (1.000-1.030) Urine Protein Negative (Negative) Urine Glucose (UA) Negative (Negative) Diagnostic Findings CT Head:No acute intracranial findings. CXR:No acute cardiopulmonary findings. No change in appearance of the chest. (1) Chest pain Chest pain type: unspecified Qualified Code(s): R07.9 - Chest pain, unspecified
[2021-07-12] MEDS ORDERED: MECLIZINE 12.5 MG TAB PO PRN (08:30)
[2021-07-12] MEDS ORDERED: NITROGLYCERIN SL 0.4 MG/TAB TAB SL PRN (10:05)
[2021-07-12] MEDS ORDERED: ACETAMINOPHEN 325 MG TAB PO PRN (10:05)
[2021-07-12] MEDS ORDERED: POLYETHYLENE (MIRALAX) 17 GM PACK PO PRN (10:05)
[2021-07-12] MEDS ORDERED: ONDANSETRON INJ 2 MG/ML 2 ML VIAL IV PRN (10:05)
[2021-07-12] MEDS ORDERED: MAGNESIUM HYDROXIDE SUSP 30 ML UDC PO PRN (10:05)
--- NOTE | 2021-07-12 10:41 | Electrocardiogram Report ---
Test Reason : Blood Pressure : / mmHG Vent. Rate : 072 BPM Atrial Rate : 064 BPM P-R Int : 252 ms QRS Dur : 096 ms QT Int : 390 ms P-R-T Axes : -15 -23 005 degrees QTc Int : 427 ms Poor data quality, interpretation may be adversely affected Atrial-paced rhythm with prolonged AV conduction with Premature supraventricular complexes Nonspecific ST and T wave abnormality Abnormal ECG When compared with ECG of 06-JAN-2021 14:31, Premature supraventricular complexes are now Present Nonspecific T wave abnormality now evident in Anterior leads Confirmed by Israel Holden ([id number]) on 07/12/2021 10:40:25 AM Referred By: Confirmed By:Israel Holden
--- NOTE | 2021-07-12 12:30 | Ultrasound Report ---
CAROTID ARTERY ULTRASOUND CLINICAL HISTORY: Dizziness COMPARISON STUDY: None. TECHNIQUE: Real-time, grayscale, and color Doppler sonography of the carotid and vertebral arteries w as performed. Images were viewed in the transverse and longitudinal planes. FINDINGS: There is mild atherosclerotic plaque. Velocity measurements are listed below. COMMON CAROTID PEAK SYSTOLIC VELOCITY (CM/S): RIGHT 69 LEFT 60 ICA PEAK SYSTOLIC VELOCITY (CM/S): RIGHT 55 LEFT 43 Systolic ratios between the internal to common carotid arteries are normal. Antegrade flow is seen in the vertebral arteries. The external carotid arteries are patent. IMPRESSION: No evidence for a hemodynamically significant stenosis. ACT 112: Negative or not required by law. Electronically signed by: Samuel Tapia M.D. 07/12/2021 12:29 PM
--- NOTE | 2021-07-12 12:49 | Cardiology Consultation ---
Date of Consultation July 12, 2021 Assessment & Plan (1) Chest pain: (2) Vertigo: (3) Near syncope: (4) Pacemaker: Complex 80-year-old female with multiple issues including longstanding history of vasovagal, vertigo and additional causes of syncope with resultant pacemaker insertion. She presents now with an episode of near syncope also describes episodes of diplopia as well as chest tightness. Initial evaluation unrevealing. Will review recent pacer interrogation Optimally would like to perform stress testing though patient is uncertain whether she is able to ambulate for procedure We will continue therapies as currently ordered and review studies once all returned. Potential stress test tomorrow History of Present Illness Reason for Consultation: Dizziness Attending Physician: Cuauhtemoc King MD History of Present Illness Patient is a 80-year-old female whose ongoing issues include 1. Paroxysmal atrial fibrillation -rare episodes (0.4% burden, longest episode lasting 2 hours and 56 minutes on March 16 with an average heart rate of 90 beats per minute.) per most recent interrogation April 21, 2021 2. Intermittent complete heart block status and sick sinus rhythm post pacemaker implantation 01/2020, [employer] Cassie XT DR MRI [id number] -normal pacemaker function with adequate battery life per most recent interrogation 3. Syncope related to vasovagal etiology, orthostatic hypotension, as well as intermittent complete heart block 4. Coronary calcifications per CT, familial history of ischemic heart disease -stress echo negative for inducible ischemia 04/2019 5. Vertigo / positional dizziness 6. Hyperlipidemia Patient is referred for consultation this admission with multitude of different complaints. Notes last evening while watching TV transient double vision, very early this morning while working on paperwork developing lightheadedness and heart pounding with presyncopal complaints. Has also been aware of a chest tightness for several weeks duration with exertion no sustained episodes. No recent fevers chills or unexplained infections has had evaluation for intermittent hematuria and elevated hepatic enzymes in the last 3 months This morning after drinking a cup of tea patient noted sudden onset of lightheadedness and then lowered herself to the floor. Became dizzy and further attempts to stand. Did check heart rate and blood pressure during event with normal blood pressures and heart rate. Trial dose of meclizine with no acute provement. Did note some mild chest pressure after doing so and subsequently presented via ambulance Initial evaluation has been unrevealing Carotid duplex without obstruction. CT scan head without acute finding. Discussed MRI with patient she notes she is intolerant due to claustrophobia. Allergies Allergy/AdvReac Type Severity Reaction Status Date / Time Iodinated Contrast Media Allergy Severe IVP Verified 07/12/21 08:10 DYE~Passed out, ENDED UP IN ICU FOR A WEEK. naproxen [From Aleve] AdvReac Unknown PER PT--MD Verified 07/12/21 08:10 TOLD NOT TO TAKE AGAIN. Home Medications Medication Instructions Recorded Confirmed Type omega 3 350 mg-dha 235 mg-epa 90 2 cap PO BID 01/12/18 07/12/21 History mg-fish oil 597 mg capsule,delay rel (Gilbert-3) pantoprazole 40 mg tablet,delayed 40 mg PO QAM 01/12/18 07/12/21 History release apixaban 5 mg tablet (Eliquis) 5 mg PO BID 01/06/21 07/12/21 History docusate sodium 100 mg capsule 100 mg PO BIDM 01/06/21 07/12/21 History magnesium hydroxide 400 mg/5 mL 400 mg PO DAILY PRN 01/06/21 07/12/21 History oral suspension (Milk of Magnesia) vit C 250 mg-vit E 90 mg-zinc 40 1 tab PO BID 01/06/21 07/12/21 History mg-copper 1 [id number] capsule (PreserVision AREDS-2) loratadine 10 mg tablet (Claritin) 10 mg PO HS 07/12/21 07/12/21 History pravastatin 10 mg tablet 10 mg PO HS 07/12/21 07/12/21 History Patient History Medical History (Updated 07/12/21 @ 14:25 by Giovanni Bowie MD) Anemia Claustrophobia GERD (gastroesophageal reflux disease) Hyperlipidemia Hypertension Migraine OVER 30 YEARS AGO Osteoarthritis Stricture of ureter REPAIR LEFT SIDE Syncope LIGHT-HEADED AND FAINTS Vertigo Surgical History History of bladder surgery bladder tack History of bunionectomy RT/LEFT AND RT/LEFT TOE FUSION History of cataract surgery RIGHT History of cholecystectomy History of colonoscopy History of prolapse of bladder History of repair of rotator cuff RT History of tooth extraction History of total abdominal hysterectomy and bilateral salpingo-oophorectomy Family History Father Myocardial infarction Mother Breast cancer Social History Smoking Status: Never smoker Second Hand Exposure: No; Hx Alcohol Use: No Hx Substance Use: No Preferred Language: Romanian Communication Ability: Effective Zinc Chloride Operator Required: No Beliefs That Will Affect Care: None Current Living Situation: Spouse 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 Safe at Home: Yes Assistive Devices: None Review of Systems Review of Systems: All systems reviewed & are unremarkable except as noted in HPI & below Physical Exam Constitutional: + thin; no acute distress Eyes: PERRL, conjunctivae normal, anicteric sclerae ENMT: external ear and nose normal, oropharynx normal Neck: trachea midline, no thyromegaly Respiratory: normal respiratory effort, lungs clear to auscultation Cardiovascular: Rate/Rhythm: regular rate and regular rhythm Heart Sounds: normal S1 and normal S2; no gallop and no murmur Palpation: normal PMI Vessels: normal carotid upstroke and radial pulses present; no JVD and no carotid bruit Extremities: no edema Chest (Breasts): Chest: + pacemaker Gastrointestinal (Abdomen): normal bowel sounds, soft, nontender, no h epatosplenomegaly Musculoskeletal: no cyanosis or clubbing, extremities motor strength 5/5 Skin: no rashes, warm and dry Neurologic: PERRL, EOMI, accommodation nl, no face palsy, no dysarthria Psychiatric: A+Ox3, euthymic affect Results & Data ([facility] [place]) Vital Signs (Past 12 Hours) Vital Signs Temp Pulse Pulse Resp BP BP Pulse Ox 07/12/21 11:35 36.5 C 72 18 121/75 98 07/12/21 09:30 61 20 105/67 94 07/12/21 09:00 63 20 101/71 96 07/12/21 08:30 62 18 107/70 96 07/12/21 08:00 64 19 120/75 97 07/12/21 07:34 72 16 132/81 96 07/12/21 07:33 70 20 07/12/21 07:02 63 20 112/71 95 07/12/21 07:00 65 15 112/71 96 07/12/21 06:31 68 15 128/72 97 07/12/21 06:30 70 16 95 07/12/21 06:10 98 07/12/21 06:04 78 18 96 07/12/21 05:58 36.5 C 89 20 134/90 95 Laboratory Results Laboratory Results - last 24 hr 07/12/21 07/12/21 07/12/21 06:10 06:10 06:12 WBC 4.97 RBC 4.49 Hgb 13.8 Hct 40.8 MCV 90.9 MCH 30.7 MCHC 33.8 RDW Std Deviation 43.6 RDW Coeff of Gale 13.2 Plt Count 158 MPV 10.3 Immature Gran % (Auto) 0.0 Neut % (Auto) 61.8 Lymph % (Auto) 23.7 Jay % (Auto) 10.1 Eos % (Auto) 4.0 Baso % (Auto) 0.4 Neut # (Auto) 3.07 Lymph # (Auto) 1.18 L Jay # (Auto) 0.50 Eos # (Auto) 0.20 Baso # (Auto) 0.02 Immature Gran # (Auto) 0.00 Sodium 138 Potassium 4.0 Chloride 107 Carbon Dioxide 24 Anion Gap 7 BUN 22 Creatinine 0.58 L Est Cr Clr Drug Dosing 68.5 Est GFR ( Amer) 102.3 Est GFR (Non-Af Amer) 88.3 BUN/Creatinine Ratio 37.9 H Glucose 107 H Calcium 8.5 Total Bilirubin 0.4 AST 23 ALT 20 Alkaline Phosphatase 55 Troponin I < 0.03 Total Protein 6.5 Albumin 4.0 Globulin 2.5 Albumin/Globulin Ratio 1.6 Lipase 50 Urine Color Yellow Urine Appearance Clear Urine pH 5.0 Ur Specific [place] 1.014 Urine Protein Negative Urine Glucose (UA) Negative Urine Ketones Negative Urine Blood Negative Urine Nitrite Negative Urine Bilirubin Negative Urine Urobilinogen Negative Ur Leukocyte Esterase Negative SARS-CoV-2, RNA, NAAT 07/12/21 07:02 WBC RBC Hgb Hct MCV MCH MCHC RDW Std Deviation RDW Coeff of Gale Plt Count MPV Immature Gran % (Auto) Neut % (Auto) Lymph % (Auto) Jay % (Auto) Eos % (Auto) Baso % (Auto) Neut # (Auto) Lymph # (Auto) Jay # (Auto) Eos # (Auto) Baso # (Auto) Immature Gran # (Auto) Sodium Potassium Chloride Carbon Dioxide Anion Gap BUN Creatinine Est Cr Clr Drug Dosing Est GFR ( Amer) Est GFR (Non-Af Amer) BUN/Creatinine Ratio Glucose Calcium Total Bilirubin AST ALT Alkaline Phosphatase Troponin I Total Protein Albumin Globulin Albumin/Globulin Ratio Lipase Urine Color Urine Appearance Urine pH Ur Specific [place] Urine Protein Urine Glucose (UA) Urine Ketones Urine Blood Urine Nitrite Urine Bilirubin Urine Urobilinogen Ur Leukocyte Esterase SARS-CoV-2, RNA, NAAT NEGATIVE (1) Chest pain Chest pain type: unspecified Qualified Code(s): R07.9 - Chest pain, unspecified
[2021-07-12] MEDS: PANTOprazole 40 MG TAB PO SCH (14:22)
[2021-07-12] MEDS: DOCUSATE SODIUM 100 MG CAP PO SCH ×2 (16:29→20:08)
[2021-07-12] MEDS: APIXABAN 5 MG TABLET PO SCH (20:02)
[2021-07-12] MEDS ORDERED: PRAVASTATIN SOD 10 MG TAB PO SCH (21:00)
[2021-07-12] MEDS ORDERED: LORATADINE 10 MG TAB PO SCH (21:00)
[2021-07-13] MEDS: DOCUSATE SODIUM 100 MG CAP PO SCH (07:50)
[2021-07-13] MEDS: PANTOprazole 40 MG TAB PO SCH (07:51)
[2021-07-13] MEDS: APIXABAN 5 MG TABLET PO SCH (07:51)
[2021-07-13 07:52] LABS: Hematocrit (blood only) 40.6 % (37-47); Hemoglobin 13.3 g/dL (12.0-16.0); Mean Corpuscular Hgb Conc 32.8 g/dL (32-36); Mean Corpuscular Volume 91.4 fL (80-100); Mean Platelet Volume 10.5 fL (7.4-10.4); Platelet Count 168 K/uL (130-400); RDW Coefficient of Variation 13.3 % (11.5-14.5); RDW Standard Deviation 44.4 fL (36.4-46.3); Red Blood Count 4.44 M/uL (4.2-5.4); White Blood Count 4.73 K/uL (4.8-10.8)
[2021-07-13 08:22] LABS: BUN Creatinine Ratio 34.4 (10-20); Calcium 8.6 mg/dl (8.5-10.1); Chol HDL Ratio 3.8 (0-5); Creatinine Clr Calc Pharmacy 59.9 ml/min; Est GFR (African American) 99.1 ml/min; Est GFR (Non-African American) 85.5 ml/min; Magnesium 1.8 mg/dl (1.7-2.4)
[2021-07-13] MEDS ORDERED: ASPIRIN 81 MG ECTAB PO SCH (09:00)
--- NOTE | 2021-07-13 10:16 | CT Scan Report ---
HEAD CT NONCONTRAST CT DOSE: 537.48 mGy.cm HISTORY: Progressive dizziness. Possible stroke. TECHNIQUE: Multiaxial CT images of the head were performed without the use of intravenous contrast. A utomated exposure control was utilized for this study. A dose lowering technique was utilized adheri ng to the principles of ALARA. Comparison: Head CT 07/12/2021. Findings: The paranasal sinuses and mastoid air cells are clear. The calvarium and skull base are int act. The ventricles and sulci are within normal limits. There is no mass, hematoma, midline shift, or acute infarct. Impression: No acute intracranial abnormality. ACT 112: Negative or not required by law. Electronically signed by: Dinesh Berg M.D. 07/13/2021 10:15 AM
--- NOTE | 2021-07-13 12:56 | Electrocardiogram Report ---
Test Reason : Blood Pressure : / mmHG Vent. Rate : 064 BPM Atrial Rate : 064 BPM P-R Int : 250 ms QRS Dur : 102 ms QT Int : 408 ms P-R-T Axes : 000 -21 -09 degrees QTc Int : 420 ms Atrial-paced rhythm with prolonged AV conduction Nonspecific ST abnormality Abnormal ECG When compared with ECG of 12-JUL-2021 06:07, Premature supraventricular complexes are no longer Present Nonspecific T wave abnormality no longer evident in Anterior leads Confirmed by Israel Holden ([id number]) on 07/13/2021 12:56:40 PM Referred By: REFERRED SELF Confirmed By:Israel Holden
--- NOTE | 2021-07-13 13:00 | Cardiology Progress Note ---
Date of Service July 13, 2021 Assessment & Plan (1) Chest pain: (2) Vertigo: (3) Near syncope: (4) Pacemaker: Plan: Complex 80-year-old female with multiple issues including longstanding history of vasovagal, vertigo and additional causes of syncope with resultant pacemaker insertion. She presents now with an episode of near syncope also describes episodes of diplopia as well as chest tightness. Initial evaluation unrevealing. Repeat CT of head without abnormality Telemetry without arrhythmia Stress test today without ischemia to moderate level workload and 100% age- predicted maximal heart rate. No cardiac symptoms. There was a mildly accelerated blood pressure response and short runs of atrial tachycardia at peak workload. Recommendations: Restart beta-rosemarie with metoprolol succinate 12.5 mg p.o. daily continue other medications as prescribed Follow-up cardiology 2 weeks time Admission and Anticipated Discharge Date Admission Date: July 12, 2021 Subjective ` Patient was seen and examined both before and after stress testing this morning. Generally had good night without recurrence of complaints. No visual changes. No chest pains, shortness of breath, tachypalpitations, syncope. Ambulatory in the hallway with physical therapy today Underwent stress echocardiography to moderate level workload in the 100% age- predicted maximal heart rate without cardiac symptom or evidence of ischemia Review of Systems Review of Systems: All systems reviewed & are unremarkable except as noted in Subjective Physical Exam Constitutional: + thin; no acute distress Eyes: PERRL, conjunctivae normal, anicteric sclerae ENMT: external ear and nose normal, oropharynx normal Neck: trachea midline, no thyromegaly Respiratory: normal respiratory effort, lungs clear to auscultation Cardiovascular: Rate/Rhythm: regular rate and regular rhythm Heart Sounds: normal S1 and normal S2; no gallop and no murmur Palpation: normal PMI Vessels: normal carotid upstroke and radial pulses present; no JVD and no carotid bruit Extremities: no edema Chest (Breasts): Chest: + pacemaker Gastrointestinal (Abdomen): normal bowel sounds, soft, nontender, no hepatosplenomegaly Musculoskeletal: no cyanosis or clubbing, extremities motor strength 5/5 Skin: no rashes, warm and dry Neurologic: PERRL, EOMI, accommodation nl, no face palsy, no dysarthria Psychiatric: A+Ox3, euthymic affect Results & Data ([facility]) Vital Signs (Past 12 Hours) Vital Signs Temp Pulse Pulse Resp BP Pulse Ox 07/13/21 07:28 65 07/13/21 06:48 36.8 C 62 17 105/68 96 07/13/21 03:52 36.5 C 64 17 136/78 96 Laboratory Results Laboratory Results - last 24 hr 07/12/21 07/12/21 07/12/21 14:20 14:20 22:34 WBC RBC Hgb Hct MCV MCH MCHC RDW Std Deviation RDW Coeff of Gale Plt Count MPV Sodium Potassium Chloride Carbon Dioxide Anion Gap BUN Creatinine Est Cr Clr Drug Dosing Est GFR ( Amer) Est GFR (Non-Af Amer) BUN/Creatinine Ratio Glucose Estimat Average Glucose Hemoglobin A1c Calcium Magnesium Troponin I < 0.03 < 0.03 Triglycerides Cholesterol LDL Cholesterol, Calc VLDL Cholesterol, Calc HDL Cholesterol Cholesterol/HDL Ratio TSH 3.030 07/13/21 07/13/21 07/13/21 06:56 06:56 06:56 WBC 4.73 L RBC 4.44 Hgb 13.3 Hct 40.6 MCV 91.4 MCH 30.0 MCHC 32.8 RDW Std Deviation 44.4 RDW Coeff of Gale 13.3 Plt Count 168 MPV 10.5 H Sodium 139 Potassium 4.0 Chloride 108 H Carbon Dioxide 27 Anion Gap 4 BUN 22 Creatinine 0.64 Est Cr Clr Drug Dosing 59.9 Est GFR ( Amer) 99.1 Est GFR (Non-Af Amer) 85.5 BUN/Creatinine Ratio 34.4 H Glucose 85 Estimat Average Glucose Pending Hemoglobin A1c Pending Calcium 8.6 Magnesium 1.8 Troponin I Triglycerides 139 Cholesterol 208 H LDL Cholesterol, Calc 125 VLDL Cholesterol, Calc 28 HDL Cholesterol 55 Cholesterol/HDL Ratio 3.8 TSH (1) Chest pain Chest pain type: unspecified Qualified Code(s): R07.9 - Chest pain, unspecified
[2021-07-13] MEDS ORDERED: METOPROLOL SUCC 25MG EXT REL TAB PO SCH (13:15)
--- NOTE | 2021-07-13 14:43 | Hospitalist Progress Note ---
Date of Service July 13, 2021 Assessment & Plan (1) Chest pain: Plan: Atrial tachycardia Chest Pain:ACS ruled out Troponin:Negative EKG shows: Atrial paced rhythm with prolonged AV conduction with PVCs, nonspecific ST and T wave abnormality. QTC 427 CXR: No acute cardiopulmonary findings. No change in appearance of the chest. ECHO: Borderline concentric LVH. Focal thickening of the basal septum with no evidence of left ventricular outflow obstruction. Left ventricle wall motion is normal. EF 55 to 60%. Grade 1 diastolic dysfunction. Trace aortic regurgitation Trend serial cardiac enzymes, repeat EKG, fasting lipid panel in AM Received Aspirin 81 mg Was on statin previously Appreciate Cardiology Input Monitor for arrhythmias Pacemaker interrogated in ED Stress Test: No inducible ischemia Started on metoprolol 12.5 mg p.o. daily as recommended by cardiology Needs follow-up with cardiology in 2 weeks Dizziness/Balance issues H/O vestibular disorder, BPPV, orthostatic hypotension Likely secondary to above, Also to rule out Rhythm issues CT head: No acute intracranial findings Monitor in Telemetry for arrhythmia ECHO as above Carotid Ultrasound:No evidence for a hemodynamically significant stenosis. Fall precautions PT/OT: Recommends return Home Meclizine as needed Paroxysmal atrial fibrillation History of intermittent complete heart block Sick sinus syndrome S/P Pacemaker Eliquis resumed Started on Metoprolol as above Dyslipidemia Pravastatin held for increased LFTs as outpatient LFTs within normal limits currently Resumed pravastatin Reported Double Vision--Intermittent H/O macular degeneration Could Not perform MRI due to claustrophobia CT head X 2: No acute process Advised to follow-up with ophthalmology as outpatient GERD Continue PPI Nephrolithiasis Currently asymptomatic Follows with urology as outpatient next DVT Px: Eliquis Code Status Full Code Disposition PT/OT prior to discharge Admission and Anticipated Discharge Date Admission Date: July 12, 2021 Subjective Patient is seen and examined at bedside States feeling much better today Chest pain resolved Had cardiac stress earlier today Discussed with cardiology today Denies any shortness of breath, dizziness, nausea, abdominal pain Offers no new complaints Review of Systems Review of Systems: All systems reviewed & are unremarkable except as noted in Subjective Physical Exam Physical Exam: Physical Exam: Vitals signs as noted above General Appearance:Moderately built and nourished, no apparent distress Head: normocephalic, Atraumatic Eyes: normal inspection, EOMI Neck: supple, Trachea midline Respiratory/Chest: Normal breath sounds, CTA, No accessory muscle use, Pacemaker on Left side of chest Cardiovascular: S1, S2, No murmur Abdomen/GI:Soft, Non tender, Bowel sounds present Extremities/Musculoskeletal:normal inspection, no edema Neurologic/Psych:AAOX3, grossly no focal neurological deficits Skin: normal color, warm Results & Data Results & Data ([facility]) Vital Signs (Past 12 Hours) Vital Signs Temp Pulse Pulse Resp BP Pulse Ox 07/13/21 14:00 36.9 C 63 16 112/76 97 07/13/21 12:53 98 07/13/21 07:28 65 07/13/21 06:48 36.8 C 62 17 105/68 96 07/13/21 03:52 36.5 C 64 17 136/78 96 Laboratory Results Short CBC 07/13/21 Range/Units 06:56 WBC 4.73 L (4.8-10.8) K/uL Hgb 13.3 (12.0-16.0) g/dL Hct 40.6 (37-47) % Plt Count 168 (130-400) K/uL BMP 07/13/21 06:56 Sodium 139 Potassium 4.0 Chloride 108 H Carbon Dioxide 27 BUN 22 Creatinine 0.64 Glucose 85 Calcium 8.6 Cardiac Enzymes 07/12/21 07/12/21 Range/Units 14:20 22:34 Troponin I < 0.03 < 0.03 (0-0.04) ng/ml (1) Chest pain Chest pain type: unspecified Qualified Code(s): R07.9 - Chest pain, unspecified
--- NOTE | 2021-07-13 15:03 | Discharge Summary ---
Date of Service July 13, 2021 Admission HPI Per Admitting Provider Patient is a 80-year-old female with history of complete heart block, SSS S/P pacemaker in 2020, paroxysmal atrial fibrillation on chronic anticoagulation with Eliquis, orthostatic hypotension, dyslipidemia, benign positional vertigo, vestibular disorder, macular degeneration, GERD, nephrolithiasis and other medical problems presents with history of ongoing gradually worsening chest pain. Patient states that she has been having retrosternal pressure-like chest pain since 3-week duration which is intermittent associated with intermittent palpitations, burning sensation behind her shoulder blades. She denies any radiation of chest pain, noticed worsening with exertion but no relieving factors. She received aspirin while in ED, which she believes helped with the chest pain and currently chest pain-free. She had pacemaker interrogation while in ED. Reports nausea today but no vomiting. Also states having balance issues since last couple of days where she is swaying to one side with ambulation assoc iated with dizziness which she thinks is different from her usual vertigo. She admits to taking meclizine for dizziness. Her last dose of Eliquis is yesterday at 8 PM. Patient had stress test in 2019 which is negative. Reports that her father in his 50s with [place]. He also reports having poor sleep and felt stressful for the past 2 days. Denies any history of SOB, orthopnea, pedal edema, diaphoresis, cough, fever, chills, fall, head trauma, LOC, headache, change in vision, vomiting, abdominal pain, diarrhea, dysuria, hematuria. Admission Exam Per Admitting Provider Physical Exam Physical Exam: Physical Exam: Vitals signs as noted above General Appearance:Moderately built and nourished, no apparent distress Head: normocephalic, Atraumatic Eyes: normal inspection, EOMI Neck: supple, Trachea midline Respiratory/Chest: Normal breath sounds, CTA, No accessory muscle use, Pacemaker on Left side of chest Cardiovascular: S1, S2, No murmur Abdomen/GI:Soft, Non tender, Bowel sounds present Extremities/Musculoskeletal:normal inspection, no edema Neurologic/Psych:AAOX3, grossly no focal neurological deficits Skin: normal color, warm Principal Diagnosis Atrial tachycardia Dizziness Discharge Data Allergies Allergy/AdvReac Type Severity Reaction Status Date / Time Iodinated Contrast Media Allergy Severe IVP Verified 07/12/21 08:10 DYE~Passed out, ENDED UP IN ICU FOR A WEEK. naproxen [From Aleve] AdvReac Unknown PER PT--MD Verified 07/12/21 08:10 TOLD NOT TO TAKE AGAIN. Consultations 07/12/21 07:53 ED Decision to Admit Stat 07/12/21 08:27 Consult Cardiology Routine Ordered Studies 07/12/21 06:45 CT head/brain wo con Stat 07/12/21 08:34 US carotid doppler BI Routine 07/13/21 07:00 CT head/brain wo con Routine Hospital Course (1) Chest pain: Atrial tachycardia Chest Pain:ACS ruled out Troponin:Negative EKG shows: Atrial paced rhythm with prolonged AV conduction with PVCs, nonspecific ST and T wave abnormality. QTC 427 CXR: No acute cardiopulmonary findings. No change in appearance of the chest. ECHO: Borderline concentric LVH. Focal thickening of the basal septum with no evidence of left ventricular outflow obstruction. Left ventricle wall motion is normal. EF 55 to 60%. Grade 1 diastolic dysfunction. Trace aortic regurgitation Trend serial cardiac enzymes, repeat EKG, fasting lipid panel in AM Received Aspirin 81 mg Was on statin previously Appreciate Cardiology Input Monitor for arrhythmias Pacemaker interrogated in ED Stress Test: No inducible ischemia Started on metoprolol 12.5 mg p.o. daily as recommended by cardiology Needs follow-up with cardiology in 2 weeks Dizziness/Balance issues H/O vestibular disorder, BPPV, orthostatic hypotension Likely secondary to above, Also to rule out Rhythm issues CT head: No acute intracranial findings Monitor in Telemetry for arrhythmia ECHO as above Carotid Ultrasound:No evidence for a hemodynamically significant stenosis. Fall precautions PT/OT: Recommends return Home Meclizine as needed Paroxysmal atrial fibrillation History of intermittent complete heart block Sick sinus syndrome S/P Pacemaker Eliquis resumed Started on Metoprolol as above Dyslipidemia Pravastatin held for increased LFTs as outpatient LFTs within normal limits currently Resumed pravastatin Reported Double Vision--Intermittent H/O macular degeneration Could Not perform MRI due to claustrophobia CT head X 2: No acute process Advised to follow-up with ophthalmology as outpatient GERD Continue PPI Nephrolithiasis Currently asymptomatic Follows with urology as outpatient next DVT Px: Eliquis Code Status Full Code Disposition PT/OT prior to discharge Total Time Total Time Spent Total Time Spent (In Minutes): 40 minutes Discharge Plan Discharge Items Patient Disposition: Home - Self-Care Reason For Visit: DIZZINESS, CHEST PAIN Discharge Diagnosis: Atrial tachycardia Dizziness Activity: Resume your previous activity Exercise/Sports: Gradually increase as tolerated Non-emergency contact: Primary Care Provider and Direct Mail Marketer Call non-emergency contact if: you have any medication questions, your symptoms worsen, your pain is concerning for you and you have a fever Follow-up/Referrals: Katie Acosta, [Primary Care Provider] - Diet: Heart Healthy Addtl Attending Provider Instructions: Follow-up with your primary care physician in 1 week Follow-up with your finisher card tender in 2 weeks as recommended. Follow-up with your obstetrics technician Dr. Dickens as recommended Seek immediate medical attention if your symptoms reoccur or worsen Please take all medications as instructed on discharge list below. Please call if you have any questions or problems. You can reach a [facility] hospitalist on duty at [facility] 24 hours a day by calling [phone] Pending Studies at Discharge: No Stand-Alone Forms: My [facility], Smoking Cessation Medications and DC Order Prescriptions: New meclizine 12.5 mg Tablet 12.5 mg PO Q6H PRN (Reason: dizziness) Qty: 30 RF: 0 metoprolol succinate 25 mg Tablet Extended Release 24 Hr 12.5 mg PO QAM Qty: 30 RF: 0 Continued pantoprazole 40 mg Tablet,Delayed Release (Dr/Ec) 40 mg PO QAM RF: 0 Eloy-3 350 mg-235 mg- 90 mg-597 mg Capsule,Delayed Release(Dr/Ec) 2 cap PO BID RF: 0 magnesium hydroxide [Milk of Magnesia] 400 mg/5 mL Suspension 400 mg PO DAILY PRN (Reason: Constipation) RF: 0 docusate sodium 100 mg capsule 100 mg PO BIDM RF: 0 Eliquis 5 mg tablet 5 mg PO BID RF: 0 PreserVision AREDS-2 250-90-40-1 mg Capsule 1 tab PO BID RF: 0 loratadine [Claritin] 10 mg Tablet 10 mg PO HS RF: 0 pravastatin 10 mg tablet 10 mg PO HS RF: 0 Discharge Orders: Discharge Order (Routine); Ordered 07/13/21 Ordered By: Cuauhtemoc King Admission Data Admit Date/Time: 07/12/21 08:23 Attending Provider: Cuauhtemoc King Admit Provider: Cuauhtemoc King Primary Care Provider: Katie Acosta Other Providers: Giovanni Bowie ; Cuauhtemoc King
[2021-07-14 07:41] LABS: Estimated Average Glucose 111 mg/dl; Hemoglobin A1C 5.5 % (4.5-5.6)
== END 2021-07-13 16:19 | disposition home or self-care (01) ==
LOC: ED 05:59 → 2S 05:59

== ENCOUNTER 2021-10-08 17:02 | Observation (INO) ==
[2021-10-08] MEDS ORDERED: SODIUM CHLORIDE 0.9% 500 ML IV SCH (17:45)
--- NOTE | 2021-10-08 17:48 | Emergency Department Note ---
Impression & Plan Dizziness, Unsteady gait when walking, Pacemaker ED Provider Note Provider: Kaiser Bryant MD DATE OF SERVICE: 10/08/2021 CHIEF COMPLAINT: Dizziness HISTORY OF PRESENT ILLNESS: Patient is a 81-year-old female history of heart block status post pacemaker, paroxysmal atrial fibrillation on Eliquis, orthostatic hypotension, benign positional vertigo, vestibular disorder, macular degeneration, GERD, and hypertension presenting here today with complaints of feeling unsteady and at times dizzy throughout today. Patient states she awoke around 6 AM this morning was okay until she went to get out of bed and then had to stagger across the room and she felt very unsteady. States she did not fall. No falls in several months reported. Patient states that this persisted throughout the day with having variable episodes of significant unsteadiness. At lunchtime became ill after eating at [employer] and quite nauseous. Patient states earlier this week she had a bit of a headache but that is since resolved. Patient states that her left eye has been twitching a little bit. Did see one of her doctors yesterday and was planning to switch her atenolol from morning to evening dosings. Noted last night that may be some palpitations and a low blood pressure with a systolic of 90 on her home blood pressure machine. But was not feeling atypical that much last night. Took a total of 3 doses of meclizine throughout the day today without improvement of her symptoms. Given persistent symptoms came via ambulance. She states at times she feels heavy and is having some weakness/difficulty getting up with her left thigh at times. Patient denies any speech issues. Denies abdominal pain. No other sick contacts reported. Patient states this is similar to prior episodes like when she was here several months ago. REVIEW OF SYSTEMS: A total of 10 review of systems was obtained and negative except as stated above in the HPI. PAST MEDICAL HISTORY: As noted above MEDICATIONS: Reviewed home medication list with the patient SOCIAL HISTORY: Lives at home with PHYSICAL EXAM: GENERAL: alert and oriented in no acute distress on stretcher Head: normocephalic and atraumatic EYES: No injection, discharge or icterus. PERRL NECK: Trachea midline. Supple. ENT: Mucous membranes pink and moist. LUNGS: Airway patent. No retractions. Breath sounds clear with good air entry bilaterally. HEART: Regular rate and rhythm. No chest wall tenderness ABDOMEN: Soft and non-tender, without guarding or rebound. SKIN: Acyanotic, warm, dry, without rashes EXTREMITIES: Without swelling, tenderness or deformity NEUROLOGICAL: No focal deficits. No aphasia. No facial droop or slurred speech. Normal strength and tone in the extremities. Sensation to gross touch normal. EK bpm sinus rhythm with frequent atrially paced rhythms as well as supraventricular complexes. No acute ST segment elevation noted with QTC of 344 and a left axis. CONTINUOUS CARDIAC MONITORING: was ordered and showed a heart rate of 70s-90s bpm in sinus rhythm with frequent atrially paced rhythms and supraventricular complexes. Patient's laboratory studies and imaging reviewed. Differential includes Benign positional vertigo, dehydration, hypovolemia, anemia, tumor, infection, hypoglycemia, electrolyte abnormalities, cardiac sources, intracerebral event, toxicologic, neurologic, as well as other pathologies. IMPRESSION/MEDICAL DECISION MAKING: Patient without significant focal deficit which is numbness or significant focal weakness or aphasia. No recent falls reported. She is anticoagulated. History of vertigo and positional vertigo but not improved with meclizine today. Basic blood work was obtained. Not significant orthostatic you are given a small mount of IV fluid. Pacemaker interrogation ordered given report of some palpitations last night. Blood work here is reassuring without significant electrolyte abnormality, leukocytosis, or anemia. CT report of the head and chest x-ray without significant acute traumatic findings noted per radiology. Analysis not impressive for infection. Negative Lyme testing. Pacemaker report returns without significant acute findings. Did not unable to tolerate MRI previously and would not be agreeable for one now. She is still quite unsteady on her feet. Believe this is likely a persistence of her peripheral issue however given her anticoagulation and stability discussed further observation here given the acute flare of dizziness. Again she is a high fall risk with her anticoagulation usage in her current state. She later questions whether he is having some palpitations at times although the pacemaker report is reassuring. States that time to get some numbness of her toes which is nonspecific as well. Patient and were in agreement for further monitoring here Given some additional meclizine. Hospitalist contacted. DIAGNOSIS: Dizzy, ambulatory dysfunction, pacemaker present DISPOSITION: Hospitalist will evaluate Patient was agreeable with this plan. Past Med/Surg History Medical History (Updated 10/08/21 @ 21:23 by Kaiser Bryant M.D.) Anemia Claustrophobia GERD (gastroesophageal reflux disease) Hyperlipidemia Hypertension Migraine OVER 30 YEARS AGO Osteoarthritis Stricture of ureter REPAIR LEFT SIDE Syncope LIGHT-HEADED AND FAINTS Vertigo Surgical History History of bladder surgery bladder tack History of bunionectomy RT/LEFT AND RT/LEFT TOE FUSION History of cataract surgery RIGHT History of cholecystectomy History of colonoscopy History of prolapse of bladder History of repair of rotator cuff RT History of tooth extraction History of total abdominal hysterectomy and bilateral salpingo-oophorectomy Family History Father Myocardial infarction Mother Breast cancer Social History Smoking Status: Never smoker Second Hand Exposure: No; Hx Alcohol Use: No Hx Substance Use: No Preferred Language: Kinyarwanda Communication Ability: Effective Undergraduate Advisor Required: No Beliefs That Will Affect Care: None Current Living Situation: Spouse 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 naproxen [From Aleve] AdvReac Unknown PER PT-- Verified 10/08/21 18:39 TOLD NOT TO TAKE AGAIN. Home Meds Home Medications Medication Instructions Recorded Confirmed omega 3 350 mg-dha 235 mg-epa 90 2 cap PO BID 01/12/18 10/08/21 mg-fish oil 597 mg capsule,delay rel ([place]-3) pantoprazole 40 mg tablet,delayed 40 mg PO QAM 01/12/18 10/08/21 release apixaban 5 mg tablet (Eliquis) 5 mg PO BID 01/06/21 10/08/21 docusate sodium 100 mg capsule 100 mg PO BIDM PRN 01/06/21 10/08/21 magnesium hydroxide 400 mg/5 mL 400 mg PO DAILY PRN 01/06/21 10/08/21 oral suspension (Milk of Magnesia) vit C 250 mg-vit E 90 mg-zinc 40 1 tab PO BID 01/06/21 10/08/21 mg-copper 1 [id number] capsule (PreserVision AREDS-2) loratadine 10 mg tablet (Claritin) 10 mg PO HS 07/12/21 10/08/21 pravastatin 10 mg tablet 5 mg PO HS 07/12/21 10/08/21 atenolol 25 mg tablet 12.5 mg PO QPM 10/08/21 10/08/21 polyethylene glycol 3350 17 17 g PO DAILY PRN 10/08/21 10/08/21 gram/dose oral powder (Miralax) Previous Rx's Medication Instructions Recorded meclizine 12.5 mg tablet 12.5 mg PO Q6H PRN #30 tab 07/13/21 Results & Data (ED) Vital Signs Vital Signs - 24 hr 10/08/21 17:06 10/08/21 17:08 10/08/21 17:10 Temperature 36.7 C Temperature Source Oral Pulse Rate 84 77 76 Pulse Rate [Finger] Pulse Rate from SpO2 Sensor 73 Pulse Rhythm Irregular Pulse Strength Normal Respiratory Rate 20 14 14 Respiratory Effort / Characteristics Non-Labored Respiratory Depth Normal Blood Pressure 157/88 H Blood Pressure [Right Arm] Blood Pressure Mean 111 Blood Pressure Mean [Right Arm] Pulse Oximetry 96 98 Oxygen Delivery Method Room Air Sepsis Recent Fever Within 48 Hours No Sepsis New/Unexplained Change in Mental Status No Sepsis Action Taken by Nursing No Action Required 10/08/21 17:11 10/08/21 17:20 10/08/21 17:30 Temperature Temperature Source Pulse Rate 78 75 82 Pulse Rate [Finger] Pulse Rate from SpO2 Sensor 64 58 L 76 Pulse Rhythm Pulse Strength Respiratory Rate 16 10 L 17 Respiratory Effort / Characteristics Respiratory Depth Blood Pressure 134/79 Blood Pressure [Right Arm] Blood Pressure Mean 97 Blood Pressure Mean [Right Arm] Pulse Oximetry 96 96 97 Oxygen Delivery Method Sepsis Recent Fever Within 48 Hours Sepsis New/Unexplained Change in Mental Status Sepsis Action Taken by Nursing 10/08/21 17:40 10/08/21 17:50 10/08/21 18:15 Temperature Temperature Source Pulse Rate 79 82 79 Pulse Rate [Finger] Pulse Rate from SpO2 Sensor 73 65 Pulse Rhythm Pulse Strength Respiratory Rate 21 20 16 Respiratory Effort / Characteristics Respiratory Depth Blood Pressure 140/77 Blood Pressure [Right Arm] Blood Pressure Mean 98 Blood Pressure Mean [Right Arm] Pulse Oximetry 98 98 Oxygen Delivery Method Room Air Sepsis Recent Fever Within 48 Hours Sepsis New/Unexplained Change in Mental Status Sepsis Action Taken by Nursing 10/08/21 18:20 10/08/21 19:00 10/08/21 19:04 Temperature Temperature Source Pulse Rate 86 Pulse Rate [Finger] 98 H Pulse Rate from SpO2 Sensor 78 Pulse Rhythm Pulse Strength Respiratory Rate 16 20 Respiratory Effort / Characteristics Respiratory Depth Blood Pressure Blood Pressure [Right Arm] 113/64 Blood Pressure Mean Blood Pressure Mean [Right Arm] 80 Pulse Oximetry 100 95 97 Oxygen Delivery Method Room Air Room Air Sepsis Recent Fever Within 48 Hours Sepsis New/Unexplained Change in Mental Status Sepsis Action Taken by Nursing Laboratory Data Result diagrams: 10/08/21 17:08 10/08/21 17:08 Lab Results 10/08/21 10/08/21 10/08/21 Range/Units 17:08 17:08 17:08 WBC 7.37 (4.8-10.8) K/uL RBC 4.72 (4.2-5.4) M/uL Hgb 14.3 (12.0-16.0) g/dL Hct 42.5 (37-47) % MCV 90.0 (80-100) fL MCH 30.3 (25-34) pg MCHC 33.6 (32-36) g/dL RDW Std Deviation 44.1 (36.4-46.3) fL RDW Coeff of Gale 13.4 (11.5-14.5) % Plt Count 186 (130-400) K/uL MPV 10.7 H (7.4-10.4) fL Immature Gran % (Auto) 0.1 % Neut % (Auto) 80.1 % Lymph % (Auto) 12.6 % [place] % (Auto) 6.2 % Eos % (Auto) 0.7 % Baso % (Auto) 0.3 % Neut # (Auto) 5.90 (1.4-6.5) K/uL Lymph # (Auto) 0.93 L (1.2-3.4) K/uL [place] # (Auto) 0.46 (0.11-0.59) K/uL Eos # (Auto) 0.05 (0-0.5) K/uL Baso # (Auto) 0.02 (0-0.2) K/uL Immature Gran # (Auto) 0.01 (0.00-0.02) K/uL Sodium 139 (136-145) mmol/L Potassium 4.0 (3.5-5.1) mmol/L Chloride 103 (98-107) mmol/L Carbon Dioxide 27 (21-32) mmol/L Anion Gap 9 (3-11) BUN 28 H (6-23) mg/dl Creatinine 0.89 (0.6-1.2) mg/dl Est Cr Clr Drug Dosing Not Reportable Est GFR ( Amer) 71.4 ml/min Est GFR (Non-Af Amer) 61.6 ml/min BUN/Creatinine Ratio 31.5 H (10-20) Glucose 199 H (70-99(Fasting)) mg/dl Calcium 9.7 (8.5-10.1) mg/dl Total Bilirubin 0.4 (0.2-1.0) mg/dl AST 20 (13-39) U/L ALT 18 (7-52) U/L Alkaline Phosphatase 55 (34-104) U/L Troponin I High Sens 4.2 (0-14) pg/ml Total Protein 7.4 (6.0-8.3) gm/dl Albumin 4.6 (3.4-5.0) gm/dl Globulin 2.8 (2.5-4.0) gm/dl Albumin/Globulin Ratio 1.6 (0.9-2) Urine Color Urine Appearance (Clear) Urine pH (4.5-7.5) Ur Specific [place] (1.000-1.030) Urine Protein (Negative) Urine Glucose (UA) (Negative) Urine Ketones (Negative) Urine Blood (Negative) Urine Nitrite (Negative) Urine Bilirubin (Negative) Urine Urobilinogen (Negative) Ur Leukocyte Esterase (Negative) Lyme Disease IgG Ab Negative (Negative) Lyme Disease IgM Ab Negative (Negative) 10/08/21 Range/Units 18:16 WBC (4.8-10.8) K/uL RBC (4.2-5.4) M/uL Hgb (12.0-16.0) g/dL Hct (37-47) % MCV (80-100) fL MCH (25-34) pg MCHC (32-36) g/dL RDW Std Deviation (36.4-46.3) fL RDW Coeff of Gale (11.5-14.5) % Plt Count (130-400) K/uL MPV (7.4-10.4) fL Immature Gran % (Auto) % Neut % (Auto) % Lymph % (Auto) % [place] % (Auto) % Eos % (Auto) % Baso % (Auto) % Neut # (Auto) (1.4-6.5) K/uL Lymph # (Auto) (1.2-3.4) K/uL [place] # (Auto) (0.11-0.59) K/uL Eos # (Auto) (0-0.5) K/uL Baso # (Auto) (0-0.2) K/uL Immature Gran # (Auto) (0.00-0.02) K/uL Sodium (136-145) mmol/L Potassium (3.5-5.1) mmol/L Chloride (98-107) mmol/L Carbon Dioxide (21-32) mmol/L Anion Gap (3-11) BUN (6-23) mg/dl Creatinine (0.6-1.2) mg/dl Est Cr Clr Drug Dosing Est GFR ( Amer) ml/min Est GFR (Non-Af Amer) ml/min BUN/Creatinine Ratio (10-20) Glucose (70-99(Fasting)) mg/dl Calcium (8.5-10.1) mg/dl Total Bilirubin (0.2-1.0) mg/dl AST (13-39) U/L ALT (7-52) U/L Alkaline Phosphatase (34-104) U/L Troponin I High Sens (0-14) pg/ml Total Protein (6.0-8.3) gm/dl Albumin (3.4-5.0) gm/dl Globulin (2.5-4.0) gm/dl Albumin/Globulin Ratio (0.9-2) Urine Color Yellow Urine Appearance Clear (Clear) Urine pH 5.5 (4.5-7.5) Ur Specific [place] 1.013 (1.000-1.030) Urine Protein Negative (Negative) Urine Glucose (UA) Trace H (Negative) Urine Ketones Negative (Negative) Urine Blood Negative (Negative) Urine Nitrite Negative (Negative) Urine Bilirubin Negative (Negative) Urine Urobilinogen Negative (Negative) Ur Leukocyte Esterase Negative (Negative) Lyme Disease IgG Ab (Negative) Lyme Disease IgM Ab (Negative) Administered Medications Discontinued Medications Sodium Chloride (Nss) 500 mls @ 999 mls/hr IV .[id number] JEANIE Stop: 10/08/21 18:15 Last Infusion: 10/08/21 18:57 Dose: 0 mls/hr Documented by: [id number] Admin: 10/08/21 17:57 Dose: 999 mls/hr Documented by: [id number] Imaging Data Radiologist's Impression: Chest X-Ray 10/08/21 17:40 XR chest 1V portable CLINICAL HISTORY: dizzy TECHNIQUE: Single frontal radiograph of the chest was obtained. Comparison: Comparison is made to chest radiograph 07/12/2021 FINDINGS: Dual lead pacemaker is seen. The cardiomediastinal silhouette is normal. The lungs are clear. No evidence of pleural effusion or pneumothorax. IMPRESSION: No acute chest disease. ACT 112: Negative or not required by law. Electronically signed by: Daryl Pastor M.D. 10/08/2021 6:[address] 10/08/21 17:40 CT head/brain wo con CLINICAL HISTORY: dizzy Technique: Contiguous axial CT images of the head were acquired from the base of the skull to the vertex without intravenous contrast administration. Images were viewed in brain, subdural and bone windows. Automated dose lowering techniques and/or adjustment according to patient size were utilized for this exam. Comparison: Comparison is made to CT head 07/13/2021 Findings: Areas of decreased attenuation are present in the periventricular and subcortical white matter bilaterally consistent with small vessel ischemic disease. Generalized cerebral atrophy with commensurate enlargement of the ventricles, sulci, and cisterns is also present. There is no acute intracranial hemorrhage or evidence of acute territorial infarction. No shift of the midline structures, mass effect, or extra-axial abnormalities are shown. Atherosclerotic calcifications are present in the intracranial segments of the internal carotid arteries. Imaged portions of the paranasal sinuses and mastoid air cells are clear. The orbits appear normal. There are no acute fractures of the calvaria or scalp swelling. Impression: No acute intracranial hemorrhage, no evidence of acute territorial infarction or other acute intracranial disease process. ACT 112: Negative or not required by law. Electronically signed by: Daryl Pastor M.D. 10/08/2021 6:09 PM Discharge Plan Visit Data Chief Complaint: Dizziness Stated Complaint: DIZZINESS ED Provider: Kaiser Bryant Discharge Problem: Dizziness, Unsteady gait when walking, Pacemaker Patient Disposition: Being Evaluated by Hospitalist Forms Stand Alone Forms: My [facility] Prescriptions Prescriptions: No Action pantoprazole 40 mg Tablet,Delayed Release (Dr/Ec) 40 mg PO QAM RF: 0 [place]-3 350 mg-235 mg- 90 mg-597 mg Capsule,Delayed Release(Dr/Ec) 2 cap PO BID RF: 0 magnesium hydroxide [Milk of Magnesia] 400 mg/5 mL Suspension 400 mg PO DAILY PRN (Reason: Constipation) RF: 0 docusate sodium 100 mg capsule 100 mg PO BIDM PRN (Reason: Constipation) RF: 0 Eliquis 5 mg tablet 5 mg PO BID RF: 0 PreserVision AREDS-2 250-90-40-1 mg Capsule 1 tab PO BID RF: 0 loratadine [Claritin] 10 mg Tablet 10 mg PO HS RF: 0 pravastatin 10 mg tablet 5 mg PO HS RF: 0 meclizine 12.5 mg Tablet 12.5 mg PO Q6H PRN (Reason: dizziness) Qty: 30 RF: 0 atenolol 25 mg tablet 12.5 mg PO QPM RF: 0 polyethylene glycol 3350 [Miralax] 17 gram/dose Powder 17 g PO DAILY PRN (Reason: Constipation) RF: 0 Referrals Referrals: Katie Acosta DO [Primary Care Provider] -
--- NOTE | 2021-10-08 18:02 | XRay Report ---
XR chest 1V portable CLINICAL HISTORY: dizzy TECHNIQUE: Single frontal radiograph of the chest was obtained. Comparison: Comparison is made to chest radiograph 07/12/2021 FINDINGS: Dual lead pacemaker is seen. The cardiomediastinal silhouette is normal. The lungs are clear. No evid ence of pleural effusion or pneumothorax. IMPRESSION: No acute chest disease. ACT 112: Negative or not required by law. Electronically signed by: Daryl Pastor M.D. 10/08/2021 6:01 PM
[2021-10-08 18:04] LABS: Alanine Aminotransferase 18 U/L (7-52); Albumin Globulin Ratio 1.6 (0.9-2); Albumin Level 4.6 gm/dl (3.4-5.0); Alkaline Phosphatase 55 U/L (34-104); Anion Gap 9 (3-11); Aspartate Aminotransferase 20 U/L (13-39); BUN Creatinine Ratio 31.5 (10-20); Bilirubin,Total 0.4 mg/dl (0.2-1.0); Blood Urea Nitrogen 28 mg/dl (6-23); Calcium 9.7 mg/dl (8.5-10.1); Carbon Dioxide 27 mmol/L (21-32); Chloride 103 mmol/L (98-107); Est GFR (African American) 71.4 ml/min; Est GFR (Non-African American) 61.6 ml/min; Globulin 2.8 gm/dl (2.5-4.0); Glucose 199 mg/dl (70-99(Fasting)); Sodium 139 mmol/L (136-145); Total Protein 7.4 gm/dl (6.0-8.3)
[2021-10-08 18:07] LABS: Basophils # (auto) 0.02 K/uL (0-0.2); Basophils % (auto) 0.3 %; Eosinophils # (auto) 0.05 K/uL (0-0.5); Eosinophils % (auto) 0.7 %; Hematocrit (blood only) 42.5 % (37-47); Hemoglobin 14.3 g/dL (12.0-16.0); Immature Granulocytes # (auto) 0.01 K/uL (0.00-0.02); Immature Granulocytes % (auto) 0.1 %; Lymphocytes # (auto) 0.93 K/uL (1.2-3.4); Lymphocytes % (auto) 12.6 %; Mean Corpuscular Hemoglobin 30.3 pg (25-34); Mean Corpuscular Hgb Conc 33.6 g/dL (32-36); Mean Platelet Volume 10.7 fL (7.4-10.4); Monocytes # (auto) 0.46 K/uL (0.11-0.59); Monocytes % (auto) 6.2 %; Neutrophils % (auto) 80.1 %; Platelet Count 186 K/uL (130-400); RDW Coefficient of Variation 13.4 % (11.5-14.5); RDW Standard Deviation 44.1 fL (36.4-46.3); Red Blood Count 4.72 M/uL (4.2-5.4); Troponin I High Sensitivity 4.2 pg/ml (0-14); White Blood Count 7.37 K/uL (4.8-10.8)
--- NOTE | 2021-10-08 18:10 | CT Scan Report ---
CT head/brain wo con CLINICAL HISTORY: dizzy Technique: Contiguous axial CT images of the head were acquired from the base of the skull to the bev priti without intravenous contrast administration. Images were viewed in brain, subdural and bone [facility]. Automated dose lowering techniques and/or adjustment according to patient size were utilized for this exam. Comparison: Comparison is made to CT head 07/13/2021 Findings: Areas of decreased attenuation are present in the periventricular and subcortical white matter bilate rally consistent with small vessel ischemic disease. Generalized cerebral atrophy with commensurate e nlargement of the ventricles, sulci, and cisterns is also present. There is no acute intracranial hem orrhage or evidence of acute territorial infarction. No shift of the midline structures, mass effect, or extra-axial abnormalities are shown. Atherosclerotic calcifications are present in the intracran ial segments of the internal carotid arteries. Imaged portions of the paranasal sinuses and mastoid air cells are clear. The orbits appear normal. There are no acute fractures of the calvaria or scalp swelling. Impression: No acute intracranial hemorrhage, no evidence of acute territorial infarction or other acute intracra nial disease process. ACT 112: Negative or not required by law. Electronically signed by: Daryl Pastor M.D. 10/08/2021 6:09 PM
[2021-10-08 18:25] LABS: Lyme Ab IgG w/WB Rflx Negative (Negative); Lyme Ab IgM w/WB Rflx Negative (Negative)
[2021-10-08 18:51] LABS: Appearance Urine Clear (Clear); Bilirubin Urine Negative (Negative); Blood Urine Negative (Negative); Color Urine Yellow; Glucose Urine UA Trace (Negative); Ketones Urine Negative (Negative); Leukocyte Esterase Urine Negative (Negative); Nitrite Urine Negative (Negative); Protein Urine Negative (Negative); Specific Gravity Urine 1.013 (1.000-1.030); Urobilinogen Urine Negative (Negative); pH Urine 5.5 (4.5-7.5)
[2021-10-08] MEDS ORDERED: MECLIZINE HCL 25 MG TAB PO STA (20:20)
[2021-10-08] MEDS ORDERED: ACETAMINOPHEN 325 MG TAB PO PRN (22:53)
[2021-10-08] MEDS ORDERED: MECLIZINE 12.5 MG TAB PO PRN (22:53)
[2021-10-08] MEDS ORDERED: ONDANSETRON INJ 2 MG/ML 2 ML VIAL IV PRN (22:53)
[2021-10-08] MEDS ORDERED: MAGNESIUM HYDROXIDE SUSP 30 ML UDC PO PRN (22:53)
[2021-10-08] MEDS ORDERED: POLYETHYLENE (MIRALAX) 17 GM PACK PO PRN (22:53)
[2021-10-08] MEDS ORDERED: NITROGLYCERIN SL 0.4 MG/TAB TAB SL PRN (22:53)
[2021-10-08] MEDS ORDERED: DOCUSATE SODIUM 100 MG CAP PO PRN (22:53)
--- NOTE | 2021-10-08 23:49 | History and Physical Report ---
DATE OF ADMISSION: 10/08/2021 CHIEF COMPLAINT: Dizziness. HISTORY OF PRESENT ILLNESS: A 81-year-old female with past medical history significant for hyperlipidemia, paroxysmal atrial fibrillation, sick sinus syndrome, status post pacemaker, macular degeneration of the left eye, GERD, vitamin A deficiency, history of vasovagal syncope, history of benign positional vertigo, family history of breast cancer in mother, lives with her , presents with dizziness. The patient has been having issues with balance for long time. She states she was in therapy for the last summer to [facility] and she was doing okay, but she still has some imbalance issues. Today, she woke up in the morning and when she tried to go to bathroom, she was feeling very dizzy. 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 Denies any headache, but she says she recently had 3 days of severe migraines and also she had some shakiness in her left eye for the last couple of days that got resolved.She says lately when she sits in the chair and when she tries to get up, she is having soreness in the hip and weakness. Appetite is okay. She is eating and swallowing okay. No runny nose, no sore throat. Has some dry cough, no fevers, no chest pain. She feels a little bit heavy in the chest. [place] nauseous, no vomiting, some abdominal discomfort. She is constipated and she takes stool softeners. Denies any blood in stools or black stools. Normal bladder movements. Currently no swelling in the legs, hemodynamically stable. ALLERGIES: IODINE CONTRAST MEDIA, NAPROXEN. PAST MEDICAL HISTORY: As mentioned above. PAST SURGICAL HISTORY: Bunion corrected with double osteotomy, colonoscopy, EGDs, EGD with endoscopic ultrasound, left and right toe joint implants, injection of lumbosacral joint, injection of eye drug, pacemaker placement, cataract surgery, shoulder cuff avulsion surgery, uterine endoscopy, vaginal hysterectomy with suspension. MEDICATIONS: The patient is on atenolol 12.5 mg p.o. q.p.m., Colace 100 mg p.o. b.i.d. p.r.n., Eliquis 5 mg p.o. b.i.d., Claritin 10 mg p.o. at bedtime, milk of magnesia 400 mg p.o. daily p.r.n., meclizine 12.5 mg p.o. q.6 hours p.r.n., omega 2 capsules p.o. b.i.d., Protonix 40 mg p.o. a.m., MiraLax 17 g p.o. daily p.r.n., pravastatin 5 mg p.o. at bedtime, PreserVision AREDS 1 tablet p.o. b.i.d. FAMILY HISTORY: Significant for mother had breast cancer; father had heart disorder; sister has breast cancer. SOCIAL HISTORY: . No smoking. No alcohol use. No drug use. REVIEW OF SYSTEMS: As per HPI. Rest of review of systems is negative. PHYSICAL EXAMINATION: GENERAL: The patient is of moderate build, not in acute distress. VITAL SIGNS: Temperature 36.7, pulse 75, respiratory rate 18, blood pressure 133/77, oxygen 98% on room air. HEENT: Pupils equal, round and reactive to light. Oral mucosa moist. NECK: No JVD, no neck masses. CARDIOVASCULAR: S1 and S2 heard. Regular rate and rhythm. No murmur, no gallop. RESPIRATORY SYSTEM: Normal AP diameter. No accessory muscle use. No wheezing, no crackles. ABDOMEN: Soft. Bowel sounds are present, nontender, no distention. CENTRAL NERVOUS SYSTEM: Cranial nerves II-XII grossly intact. Power 5/5 in all extremities. Sensation intact. No pronator drift. Coordination of movements normal. EXTREMITIES: No edema, no erythema. LABORATORY: WBC 7.3, hemoglobin 14.3, hematocrit 42.5, platelets 186. Sodium 139, potassium 4, chloride 103, bicarbonate 27, BUN 28, creatinine 0.8, serum glucose 199, calcium 9.7, total bilirubin 0.4, AST 20, ALT 18, alkaline phosphatase 55. Troponin I high sensitivity 4.2. Urinalysis negative. Lyme screen is negative. CT of the head without contrast: No acute findings. Chest x-ray: No active disease in the chest. EKG: Sinus rhythm with frequent atrial paced complexes and PVC at a rate of 78. ASSESSMENT AND PLAN: This 81-year-old female presents with dizziness. 1. Dizziness, also the patient has ongoing imbalance: The patient has a history of vertigo and takes meclizine, but does not help today. CT head unremarkable. The patient refused MRI scan. The patient also has a pacemaker. It looks like as per Emergency Room notes, the pacemaker was interrogated and was okay. Will check orthostatics and gentle fluids. Observe in the med- telemetry. Consult neurology and physical therapy and occupational therapy and monitor. 2. Ambulatory dysfunction: physical therapy and occupational therapy. 3. History of atrial fibrillation, history of sick sinus syndrome, status post pacemaker: On atenolol and Eliquis. We will monitor. 4. Gastroesophageal reflux disease: Continue Protonix. 5. Hyperlipidemia: Continue statin. 6. Macular degeneration: Follow up with ophthalmology. 7. Hip pain. Will get x rays. 8. Deep venous thrombosis prophylaxis: On Eliquis. DISPOSITION: Observation in med-tele. PT/OT prior to discharge. Social Service to help with discharge planning. Level 1, full code. Job ID: [id number]
[2021-10-08] MEDS: APIXABAN 5 MG TABLET PO SCH (23:58)
[2021-10-08] MEDS: SODIUM CHLORIDE 0.9% 1000ML 1,000 ML IV SCH (23:58)
[2021-10-08] MEDS: ATENOLOL 25 MG TABLET PO SCH (23:59)
[2021-10-08] MEDS: PRAVASTATIN SOD 10 MG TAB PO SCH (23:59)
[2021-10-09 06:12] LABS: Basophils # (auto) 0.01 K/uL (0-0.2); Basophils % (auto) 0.2 %; Eosinophils # (auto) 0.13 K/uL (0-0.5); Eosinophils % (auto) 2.5 %; Hematocrit (blood only) 39.7 % (37-47); Hemoglobin 13.4 g/dL (12.0-16.0); Lymphocytes # (auto) 1.78 K/uL (1.2-3.4); Lymphocytes % (auto) 34.8 %; Mean Corpuscular Hemoglobin 30.7 pg (25-34); Mean Corpuscular Hgb Conc 33.8 g/dL (32-36); Mean Corpuscular Volume 90.8 fL (80-100); Mean Platelet Volume 10.5 fL (7.4-10.4); Monocytes # (auto) 0.48 K/uL (0.11-0.59); Monocytes % (auto) 9.4 %; Neutrophils # (auto) 2.72 K/uL (1.4-6.5); Neutrophils % (auto) 53.1 %; Platelet Count 166 K/uL (130-400); RDW Coefficient of Variation 13.2 % (11.5-14.5); Red Blood Count 4.37 M/uL (4.2-5.4); White Blood Count 5.12 K/uL (4.8-10.8)
[2021-10-09 06:30] LABS: Troponin I High Sensitivity 6.7 pg/ml (0-14)
[2021-10-09 06:33] LABS: BUN Creatinine Ratio 35.2 (10-20); Calcium 8.8 mg/dl (8.5-10.1); Creatinine Clr Calc Pharmacy 79.1 ml/min; Est GFR (Non-African American) 89.8 ml/min; Potassium 3.9 mmol/L (3.5-5.1)
[2021-10-09] MEDS: CEROVITE ADV FORMULA TAB PO SCH (09:29)
[2021-10-09] MEDS: PANTOprazole 40 MG TAB PO SCH (09:29)
[2021-10-09] MEDS: APIXABAN 5 MG TABLET PO SCH ×2 (09:29→20:02)
--- NOTE | 2021-10-09 09:29 | XRay Report ---
XR hip NASH 2v w pelvis CLINICAL HISTORY: bilateral hip pain TECHNIQUE: 2 views of the right hip and single frontal view of the pelvis were obtained. Comparison: None available at the time of this dictation. FINDINGS: There is no evidence of an acute fracture. Degenerative changes are seen in the hip joint. No soft ti ssue abnormality is seen. IMPRESSION: No evidence of acute osseous injury. ACT 112: Negative or not required by law. Electronically signed by: Daryl Pastor M.D. 10/09/2021 9:26 AM
--- NOTE | 2021-10-09 12:19 | Neurology Consultation ---
Date of Consultation October 09, 2021 Assessment & Plan (1) Dizziness: 1. PT for jona maneuver 2. repeat CT head in 24 hour after previous 3. MRI brain with and without- pacemaker compatible according to pt- but she is refusing 4. carotid doppler to assess vessels however CTA head/neck would be better for assessment of posterior circulation- ordered not done 5. zofran for nausea 6. PT as outpatient for gait and balance issues will sign off for now no follow up needed from neurology standpoint Supervising Physician Co-Signing Physician Notes I have seen and discussed above patient with Dr Adi Sanford, neurology I have interviewed and examined this patient with Jacki Carrasquillo PA-C and reviewed her history and at this point suspect that she has simply had a recurrence of a chronic problem with true vertigo and nonspecific disequilibrium/gait disturbance that has been present for at least 4 years and generally has been managed by physical therapy and vestibular therapy with performance of Jona maneuvers and vestibular exercises coupled with meclizine. We are hampered diagnostically by her intolerance of MRI scans and by a severe allergy to IVP dye so at this point I think we should go ahead with a duplex of the carotid arteries and if this is normal she can return to the care of her primary care physician and perhaps could be evaluated by an ear nose and throat group suspect she has had these evaluations in the past She really does not describe fullness hearing loss or tinnitus so I do not think were dealing with Mnire's disease Exam is actually from a neurologic point of view quite normal revealing intact cranial nerves normal strength good reflexes downgoing toes and a nonspecifically unsteady gait that is narrow not associate with any loss of associated movements and without any tremor simian posturing or other evidence that would suggest a basal ganglia disorder Neurology is going to sign off the case at this point with recommendations that she continue taking her as needed meclizine and that the episodes that are characterized by more nausea and vertigo may respond to an agent such as Zofran Obviously if there is significant findings on duplex of the carotids she may have to be desensitized and have a CT angiographic study but hopefully this will not be necessary Dr. Xiao will be available for review of the duplex scan if it turns out to be abnormal and will be able to return and see the patient in consultation if anything changes but for now I think neurology is particularly necessary in her ongoing care Adi Sanford MD History of Present Illness Reason for Consultation: dizziness Requesting Physician: Rodolfo Matias MD Attending Physician: Rodolfo Matias MD History of Present Illness Soraida is a 81 year old female with PMH- HLD, pAfib, SSS with pacemaker, macular degeneration of the left eye, GERD, vitamin A deficiency, vasovagal syncope, benign positional vertigo, who, lives with her and presents to [facility] 10/08/21 with dizziness.She had been having issues with balance for long time.She was in therapy for the last summer to [facility] and she was doing okay, but she still has some imbalance issues. When she tried to go to bathroom, she was feeling very dizzy. After that, she went for driving licence and then she came back and went to [employer], she had 2 burgers after which , suddenly she started feeling very dizzy again, having ambulatory dysfunction, not feeling well, which prompted her to come to the ER and she was feeling nauseous and now she says she could not walk a few steps because she was very imbalance and dizziness. She recently had 3 days of severe migraines and also she had some shakiness in her left eye for the last couple of days that got resolved.She says lately when she sits in the chair and when she tries to get up, she is having soreness in the hip and weakness.She is eating and swallowing okay. She feels a little bit heavy in the chest. She is constipated and she takes stool softeners. She has been having the same type of symptoms for years. She is able to have the MRI she just refused to go in the tube. She is feeling back to her baseline. denies current dizziness or light headached feeling, N, V, headache, new bowel or bladder issues Allergies Allergy/AdvReac Type Severity Reaction Status Date / Time Iodinated Contrast Media Allergy Severe IVP Verified 10/08/21 18:39 DYE~Passed out, ENDED UP IN ICU FOR A WEEK. naproxen [From Aleve] AdvReac Unknown PER PT-- Verified 10/08/21 18:39 TOLD NOT TO TAKE AGAIN. Home Medications Medication Instructions Recorded Confirmed Type omega 3 350 mg-dha 235 mg-epa 90 2 cap PO BID 01/12/18 10/08/21 History mg-fish oil 597 mg capsule,delay rel ([place]owney-3) pantoprazole 40 mg tablet,delayed 40 mg PO QAM 01/12/18 10/08/21 History release apixaban 5 mg tablet (Eliquis) 5 mg PO BID 01/06/21 10/08/21 History docusate sodium 100 mg capsule 100 mg PO BIDM PRN 01/06/21 10/08/21 History magnesium hydroxide 400 mg/5 mL 400 mg PO DAILY PRN 01/06/21 10/08/21 History oral suspension (Milk of Magnesia) vit C 250 mg-vit E 90 mg-zinc 40 1 tab PO BID 01/06/21 10/08/21 History mg-copper 1 [id number] capsule (PreserVision AREDS-2) loratadine 10 mg tablet (Claritin) 10 mg PO HS 07/12/21 10/08/21 History pravastatin 10 mg tablet 5 mg PO HS 07/12/21 10/08/21 History meclizine 12.5 mg tablet 12.5 mg PO Q6H PRN #30 tab 07/13/21 10/08/21 Rx atenolol 25 mg tablet 12.5 mg PO QPM 10/08/21 10/08/21 History polyethylene glycol 3350 17 17 g PO DAILY PRN 10/08/21 10/08/21 History gram/dose oral powder (Miralax) Patient History Medical History (Updated 10/08/21 @ 21:23 by Kaiser Bryant M.D.) Anemia Claustrophobia GERD (gastroesophageal reflux disease) Hyperlipidemia Hypertension Migraine OVER 30 YEARS AGO Osteoarthritis Stricture of ureter REPAIR LEFT SIDE Syncope LIGHT-HEADED AND FAINTS Vertigo Surgical History History of bladder surgery bladder tack History of bunionectomy RT/LEFT AND RT/LEFT TOE FUSION History of cataract surgery RIGHT History of cholecystectomy History of colonoscopy History of prolapse of bladder History of repair of rotator cuff RT History of tooth extraction History of total abdominal hysterectomy and bilateral salpingo-oophorectomy Family History Father Myocardial infarction Mother Breast cancer Social History Smoking Status: Former smoker Second Hand Exposure: No; Hx Alcohol Use: No Hx Substance Use: No Preferred Language: Vietnamese Communication Ability: Effective Computer Repairer Required: No Beliefs That Will Affect Care: None Current Living Situation: Spouse 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 Safe at Home: Yes Assistive Devices: Cane Review of Systems Review of Systems: All systems reviewed & are unremarkable except as noted in HPI & below Physical Exam Physical Exam: Physical Exam: Constitutional: appearance nourished, healthy and normal Ears, Nose, Mouth and Throat: mucous membranes moist, no injection and skin normal, eyes normal Cardiovascular: normal S-1 and S-2 and regular rate and rhythm Respiratory: clear to auscultation (CTA) and no rales, rhonchi or wheeze Musculoskeletal: no peripheral edema and good distal pulses Skin: no stigmata of neurocutaneous disease noted and normal and intact Eyes: extraocular muscles intact (EOMI) and pupils equal, round and reactive to light (PERRL), no nystagmus NEUROLOGIC EXAMINATION: Mental status: Alert and interactive Oriented to full date and location Oriented to person Speech fluent with no evidence of aphasia Cranial Nerves smile eye brow raise symmetric Reflexes: Deep tendon reflexes were symmetrical and graded 2/5. GT proprioception intact Sensory: light cool and vibration intact Coordination: finger to nose Gait/Stance: Posture normal. Gait normal: with steady with steps, base, turning slight swaying tandem gait. Motor: Negative for pronator drift of out stretched arms with eyes closed. 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 triceps 5/5, hip flex 5/5 Results & Data ([facility]) Vital Signs (Past 12 Hours) Vital Signs Temp Pulse Pulse Resp BP Pulse Ox 10/09/21 07:31 60 10/09/21 06:38 36.8 C 67 18 141/84 H 96 10/09/21 03:33 36.3 C L 72 18 141/73 H 96 Laboratory Results Abnormal lab results 10/08/21 10/08/21 10/08/21 Range/Units 17:08 17:08 18:16 MPV 10.7 H (7.4-10.4) fL Lymph # (Auto) 0.93 L (1.2-3.4) K/uL Chloride (98-107) mmol/L BUN 28 H (6-23) mg/dl Creatinine (0.6-1.2) mg/dl BUN/Creatinine Ratio 31.5 H (10-20) Glucose 199 H (70-99(Fasting)) mg/dl Urine Glucose (UA) Trace H (Negative) 10/09/21 10/09/21 Range/Units 05:22 05:22 MPV 10.5 H (7.4-10.4) fL Lymph # (Auto) (1.2-3.4) K/uL Chloride 112 H (98-107) mmol/L BUN (6-23) mg/dl Creatinine 0.54 L D (0.6-1.2) mg/dl BUN/Creatinine Ratio 35.2 H (10-20) Glucose (70-99(Fasting)) mg/dl Urine Glucose (UA) (Negative) Diagnostic Findings CXR-Dual lead pacemaker is seen. The cardiomediastinal silhouette is normal. The lungs are clear. No evidence of pleural effusion or pneumothorax. CT head-No acute intracranial hemorrhage, no evidence of acute territorial infarction or other acute intracranial disease process. Hip/pelvis xray-here is no evidence of an acute fracture. Degenerative changes are seen in the hip joint. No soft tissue abnormality is seen.
[2021-10-09] MEDS: SODIUM CHLORIDE 0.9% 1000ML 1,000 ML IV SCH (12:46)
--- NOTE | 2021-10-09 16:54 | Hospitalist Progress Note ---
Date of Service October 09, 2021 Assessment & Plan (1) Dizziness: Plan: Ongoing symptoms for the last 4 years Managed with Frank maneuver, physical therapy and occasional use of meclizine Presented with another attack during this admission Appreciate neurology input and recommendation We will get a CAT scan tomorrow Underwent ultrasound about 2 months ago and those are unremarkable Cannot have MRI and/or CTA due to significant dye allergy We will get PT and OT evaluation and possible discharge tomorrow on meclizine and Zofran (2) Unsteady gait when walking: Plan: Chronic problem and is complicated by dizziness (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 (4) Hyperlipidemia: Plan: Continue statin (5) Macular degeneration: Plan: Has significant visual issues with diplopia and difficulty in focusing This may be contributing her dizziness Was advised to keep appointment with tower foreman as an outpatient Admission and Anticipated Discharge Date Admission Date: October 08, 2021 Subjective 10/09/2021 The patient was seen and examined in medical telemetry unit She has been complaining of dizziness for the last 4 years controlled with Frank maneuvers and meclizine as needed Has had an attack this time and was admitted to the hospital She has significant visual disturbances in the form of diplopia secondary to macular degeneration and retinal procedure Has been feeling a lot better since this morning Review of Systems Review of Systems: All systems reviewed and are unremarkable except as noted below Physical Exam Physical Exam: Lying in bed comfortably Constitutional: average body habitus; not ill appearing Eyes: PERRL, conjunctivae normal, anicteric sclerae ENMT: external ear and nose normal, oropharynx normal Respiratory: no respiratory distress Auscultation: lungs clear to auscultation bilaterally Cardiovascular: Rate/Rhythm: regular rate and regular rhythm; not tachycardic Heart Sounds: normal S1 and normal S2; no murmur Extremities: no edema Gastrointestinal (Abdomen): Inspection/Auscultation: normal bowel sounds; abdomen not distended Percussion/Palpation: abdomen soft; abdomen nontender Musculoskeletal: No acute arthritis in any joint Neurologic: Alert, awake and oriented x3. No focal sensory or no motor deficit appreciated Results & Data Results & Data ([facility]) Vital Signs (Past 12 Hours) Vital Signs Temp Pulse Pulse Resp BP Pulse Ox 10/09/21 14:47 36.7 C 96 10/09/21 12:50 37.1 C 61 18 110/70 99 10/09/21 07:31 60 10/09/21 06:38 36.8 C 67 18 141/84 H 96 Laboratory Results Short CBC 10/08/21 10/09/21 Range/Units 17:08 05:22 WBC 7.37 5.12 (4.8-10.8) K/uL Hgb 14.3 13.4 (12.0-16.0) g/dL Hct 42.5 39.7 (37-47) % Plt Count 186 166 (130-400) K/uL BMP 10/08/21 10/09/21 17:08 05:22 Sodium 139 142 Potassium 4.0 3.9 Chloride 103 112 H Carbon Dioxide 27 23 BUN 28 H 19 Creatinine 0.89 0.54 L D Glucose 199 H 82 Calcium 9.7 8.8 Liver Function 10/08/21 Range/Units 17:08 Total Bilirubin 0.4 (0.2-1.0) mg/dl AST 20 (13-39) U/L ALT 18 (7-52) U/L Alkaline Phosphatase 55 (34-104) U/L Albumin 4.6 (3.4-5.0) gm/dl Urine 10/08/21 Range/Units 18:16 Urine Color Yellow Urine Appearance Clear (Clear) Urine pH 5.5 (4.5-7.5) Ur Specific [place] 1.013 (1.000-1.030) Urine Protein Negative (Negative) Urine Glucose (UA) Trace H (Negative) Medications Administered Current Inpatient Medications Acetaminophen (Acetaminophen 325 Mg Tab) 650 mg PO Q4H PRN PRN Reason: Pain or Fever Stop: 11/07/21 22:52 Apixaban (Apixaban 5 Mg Tablet) 5 mg PO BID JEANIE Stop: 11/07/21 22:52 Last Admin: 10/09/21 09:29 Dose: 5 mg Documented by: Atenolol (Atenolol 25 Mg Tablet) 12.5 mg PO QPM JEANIE Stop: 11/07/21 22:52 Last Admin: 10/08/21 23:59 Dose: 12.5 mg Documented by: Docusate Sodium (Docusate Sodium 100 Mg Cap) 100 mg PO BIDM PRN PRN Reason: Constipation Stop: 11/07/21 22:52 Sodium Chloride (Nss 1000ml) 1,000 mls @ 80 mls/hr IV .[id number] [facility] Stop: 11/07/21 22:52 Last Admin: 10/09/21 12:46 Dose: 80 mls/hr Documented by: Loratadine (Loratadine 10 Mg Tab) 10 mg PO [facility] Stop: 11/08/21 20:59 Magnesium Hydroxide (Magnesium Hydroxide Susp 30 Ml Udc) 30 ml PO DAILY PRN PRN Reason: Constipation Stop: 11/07/21 22:52 Meclizine HCl (Meclizine 12.5 Mg Tab) 12.5 mg PO Q6H PRN PRN Reason: dizziness Stop: 11/07/21 22:52 Multivitamins/Minerals (Cerovite Adv Formula Tab) 1 tab PO [facility] Stop: 11/08/21 08:59 Last Admin: 10/09/21 09:29 Dose: 1 tab Documented by: Nitroglycerin (Nitroglycerin Sl 0.4 Mg/Tab Tab) 0.4 mg SL UD PRN PRN Reason: Chest Pain Stop: 11/07/21 22:52 Ondansetron HCl (Ondansetron Inj 2 Mg/Ml 2 Ml Vial) 4 mg IV Q6H PRN PRN Reason: Nausea Stop: 11/07/21 22:52 Pantoprazole Sodium (Pantoprazole 40 Mg Tab) 40 mg PO [facility] Stop: 11/08/21 08:59 Last Admin: 10/09/21 09:29 Dose: 40 mg Documented by: Polyethylene Glycol (Polyethylene (Miralax) 17 Gm Pack) 17 gm PO DAILY PRN PRN Reason: Constipation Stop: 11/07/21 22:52 Pravastatin Sodium (Pravastatin Sod 10 Mg Tab) 5 mg PO [facility] Stop: 11/07/21 22:52 Last Admin: 10/08/21 23:59 Dose: 5 mg Documented by:
[2021-10-09] MEDS: ATENOLOL 25 MG TABLET PO SCH (20:02)
[2021-10-09] MEDS: PRAVASTATIN SOD 10 MG TAB PO SCH (20:02)
[2021-10-09] MEDS ORDERED: LORATADINE 10 MG TAB PO SCH (21:00)
[2021-10-10] MEDS: SODIUM CHLORIDE 0.9% 1000ML 1,000 ML IV SCH ×2 (01:08→13:57)
--- NOTE | 2021-10-10 06:00 | Electrocardiogram Report ---
Test Reason : Blood Pressure : / mmHG Vent. Rate : 078 BPM Atrial Rate : 078 BPM P-R Int : 140 ms QRS Dur : 094 ms QT Int : 302 ms P-R-T Axes : -09 -35 109 degrees QTc Int : 344 ms Poor data quality, interpretation may be adversely affected Atrial-paced rhythm and Premature supraventricular complexes Left axis deviation Possible Septal infarct , age undetermined Abnormal ECG When compared with ECG of 13-JUL-2021 05:31, Premature supraventricular complexes are now Present Nonspecific T wave abnormality, improved in Inferior leads Confirmed by Willie Phelps ([id number]) on 10/10/2021 6:00:08 AM Referred By: REFERRED SELF Confirmed By:Willie Phelps
--- NOTE | 2021-10-10 06:14 | Electrocardiogram Report ---
Test Reason : Blood Pressure : / mmHG Vent. Rate : 062 BPM Atrial Rate : 062 BPM P-R Int : 276 ms QRS Dur : 102 ms QT Int : 422 ms P-R-T Axes : 000 -40 -48 degrees QTc Int : 428 ms Atrial-paced rhythm with prolonged AV conduction Left axis deviation Nonspecific ST and T wave abnormality Abnormal ECG When compared with ECG of 08-OCT-2021 17:10, Premature supraventricular complexes are no longer Present Confirmed by Willie Phelps ([id number]) on 10/10/2021 6:14:26 AM Referred By: REFERRED SELF Confirmed By:Willie Phelps
[2021-10-10 08:14] LABS: BUN Creatinine Ratio 32.9 (10-20); Calcium 9.5 mg/dl (8.5-10.1); Creatinine Clr Calc Pharmacy 58.5 ml/min; Est GFR (African American) 90.8 ml/min; Est GFR (Non-African American) 78.3 ml/min
[2021-10-10] MEDS: PANTOprazole 40 MG TAB PO SCH (09:47)
[2021-10-10] MEDS: APIXABAN 5 MG TABLET PO SCH (09:47)
[2021-10-10] MEDS: CEROVITE ADV FORMULA TAB PO SCH (09:47)
--- NOTE | 2021-10-10 11:37 | CT Scan Report ---
CT head/brain wo con CLINICAL HISTORY: Dizziness,Follow up Technique: Contiguous axial CT images of the head were acquired from the base of the skull to the bev priti without intravenous contrast administration. Images were viewed in brain, subdural and bone [facility]. Automated dose lowering techniques and/or adjustment according to patient size were utilized for this exam. Comparison: Comparison is made to CT head 10/08/2021 Findings: The ventricles, basal cisterns, and cerebral sulci are normal. There is no acute intracranial hemorrh age or evidence of acute territorial infarction. Neither mass effect, shift of the midline structures , nor abnormal extra-axial fluid collections are shown. Imaged portions of the paranasal sinuses and mastoid air cells are clear. The orbits appear normal. There are no acute fractures of the calvaria or scalp swelling. Impression: No acute intracranial hemorrhage, no evidence of acute territorial infarction or other acute intracra nial disease process. ACT 112: Negative or not required by law. Electronically signed by: Daryl Pastor M.D. 10/10/2021 11:36 AM
--- NOTE | 2021-10-10 13:40 | Hospitalist Progress Note ---
Date of Service October 10, 2021 Assessment & Plan (1) Dizziness: Plan: Ongoing symptoms for the last 4 years Managed with Frank maneuver, physical therapy and occasional use of meclizine Presented with another attack during this admission Appreciate neurology input and recommendation We will get a CAT scan tomorrow Underwent ultrasound about 2 months ago and those are unremarkable Cannot have MRI and/or CTA due to significant dye allergy We will get PT and OT evaluation and possible discharge tomorrow on meclizine and Zofran Repeat CT scan is unremarkable Carotid ultrasound was done in June without any significant stenosis She has been feeling much better with decreasing dizzy spells Discharged home today and will have an outpatient appointment with the ENT specialist (2) Unsteady gait when walking: Plan: Chronic problem and is complicated by dizziness Strongly advised to take precautions to avoid fall (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 (4) Hyperlipidemia: Plan: Continue statin (5) Macular degeneration: Plan: Has significant visual issues with diplopia and difficulty in focusing This may be contributing her dizziness Was advised to keep appointment with gate keeper as an outpatient Her visual symptoms may be complicating her dizziness as well Admission and Anticipated Discharge Date Admission Date: October 08, 2021 Subjective 10/09/2021 The patient was seen and examined in medical telemetry unit She has been complaining of dizziness for the last 4 years controlled with Frank maneuvers and meclizine as needed Has had an attack this time and was admitted to the hospital She has significant visual disturbances in the form of diplopia secondary to macular degeneration and retinal procedure Has been feeling a lot better since this morning 10/10/2021 The patient was seen and examined in medical telemetry unit She has been feeling much better today and denies any significant dizziness She has had physical therapy and recommended home She had a negative CT scan today She will be discharged home this afternoon Review of Systems Review of Systems: All systems reviewed and are unremarkable except as noted below Physical Exam Physical Exam: Lying in bed comfortably Constitutional: average body habitus; not ill appearing Eyes: PERRL, conjunctivae normal, anicteric sclerae ENMT: external ear and nose normal, oropharynx normal Respiratory: no respiratory distress Auscultation: lungs clear to auscultation bilaterally Cardiovascular: Rate/Rhythm: regular rate and regular rhythm; not tachycardic Heart Sounds: normal S1 and normal S2; no murmur Extremities: no edema Gastrointestinal (Abdomen): Inspection/Auscultation: normal bowel sounds; abdomen not distended Percussion/Palpation: abdomen soft; abdomen nontender Musculoskeletal: No acute arthritis in any joint Neurologic: Alert, awake and oriented x3. No focal sensory or no motor deficit appreciated Psychiatric: A+Ox3, euthymic affect Lymphatic: no cervical or axillary lymphadenopathy Results & Data Results & Data ([facility]) Vital Signs (Past 12 Hours) Vital Signs Temp Pulse Pulse Resp BP Pulse Ox 10/10/21 12:00 36.4 C L 65 18 124/76 99 10/10/21 08:00 64 10/10/21 07:45 36.7 C 60 18 106/75 96 10/10/21 03:17 36.7 C 73 18 117/73 96 Laboratory Results [facility] 10/10/21 07:16 Sodium 140 Potassium 4.0 Chloride 110 H Carbon Dioxide 25 BUN 24 H Creatinine 0.73 Glucose 79 Calcium 9.5 Medications Administered Current Inpatient Medications Acetaminophen (Acetaminophen 325 Mg Tab) 650 mg PO Q4H PRN PRN Reason: Pain or Fever Stop: 11/07/21 22:52 Apixaban (Apixaban 5 Mg Tablet) 5 mg PO BID JEANIE Stop: 11/07/21 22:52 Last Admin: 10/10/21 09:47 Dose: 5 mg Documented by: Atenolol (Atenolol 25 Mg Tablet) 12.5 mg PO QPM JEANIE Stop: 11/07/21 22:52 Last Admin: 10/09/21 20:02 Dose: 12.5 mg Documented by: Docusate Sodium (Docusate Sodium 100 Mg Cap) 100 mg PO BIDM PRN PRN Reason: Constipation Stop: 11/07/21 22:52 Sodium Chloride (Nss 1000ml) 1,000 mls @ 80 mls/hr IV .[id number] JEANIE Stop: 11/07/21 22:52 Last Infusion: 10/10/21 13:57 Dose: Infused Documented by: Loratadine (Loratadine 10 Mg Tab) 10 mg PO HS [facility] Stop: 11/08/21 20:59 Last Admin: 10/09/21 20:02 Dose: 10 mg Documented by: Magnesium Hydroxide (Magnesium Hydroxide Susp 30 Ml Udc) 30 ml PO DAILY PRN PRN Reason: Constipation Stop: 11/07/21 22:52 Meclizine HCl (Meclizine 12.5 Mg Tab) 12.5 mg PO Q6H PRN PRN Reason: dizziness Stop: 11/07/21 22:52 Multivitamins/Minerals (Cerovite Adv Formula Tab) [facility] Stop: 11/08/21 08:59 Last Admin: 10/10/21 09:47 Dose: 1 tab Documented by: Nitroglycerin (Nitroglycerin Sl 0.4 Mg/Tab Tab) 0.4 mg SL UD PRN PRN Reason: Chest Pain Stop: 11/07/21 22:52 Ondansetron HCl (Ondansetron Inj 2 Mg/Ml 2 Ml Vial) 4 mg IV Q6H PRN PRN Reason: Nausea Stop: 11/07/21 22:52 Pantoprazole Sodium (Pantoprazole 40 Mg Tab) 40 mg PO [facility] Stop: 11/08/21 08:59 Last Admin: 10/10/21 09:47 Dose: 40 mg Documented by: Polyethylene Glycol (Polyethylene (Miralax) 17 Gm Pack) 17 gm PO DAILY PRN PRN Reason: Constipation Stop: 11/07/21 22:52 Pravastatin Sodium (Pravastatin Sod 10 Mg Tab) 5 mg PO [facility] Stop: 11/07/21 22:52 Last Admin: 10/09/21 20:02 Dose: 5 mg Documented by:
--- NOTE | 2021-10-10 15:50 | Electrocardiogram Report ---
Test Reason : Blood Pressure : / mmHG Vent. Rate : 061 BPM Atrial Rate : 061 BPM P-R Int : 262 ms QRS Dur : 106 ms QT Int : 420 ms P-R-T Axes : 000 -36 -18 degrees QTc Int : 422 ms Atrial-paced rhythm with prolonged AV conduction Left axis deviation Abnormal ECG When compared with ECG of 09-OCT-2021 06:06, No significant change was found Confirmed by Israel Holden ([id number]) on 10/10/2021 3:49:51 PM Referred By: REFERRED SELF Confirmed By:Israel Holden
--- NOTE | 2021-10-11 08:36 | Discharge Summary ---
Date of Service October 11, 2021 Admission HPI Per Admitting Provider DICTATED BY:David Britton MD DATE OF ADMISSION: 10/08/2021 CHIEF COMPLAINT: Dizziness. HISTORY OF PRESENT ILLNESS: A 81-year-old female with past medical history significant for hyperlipidemia, paroxysmal atrial fibrillation, sick sinus syndrome, status post pacemaker, macular degeneration of the left eye, GERD, vitamin A deficiency, history of vasovagal syncope, history of benign positional vertigo, family history of breast cancer in mother, lives with her , presents with dizziness. The patient has been having issues with balance for long time. She states she was in therapy for the last summer to [facility] and she was doing okay, but she still has some imbalance issues. Today, she woke up in the morning and when she tried to go to bathroom, she was feeling very dizzy. After that, she went for driving licence and then she came back and went to [employer], she had 2 burgers after which , suddenly she started feeling very dizzy again, having ambulatory dysfunction, not feeling well, which prompted her to come to the ER and she was feeling nauseous and now she says she could not walk a few steps because she was very imbalance and dizziness. Denies any headache, but she says she recently had 3 days of severe migraines and also she had some shakiness in her left eye for the last couple of days that got resolved.She says lately when she sits in the chair and when she tries to get up, she is having soreness in the hip and weakness. Appetite is okay. She is eating and swallowing okay. No runny nose, no sore throat. Has some dry cough, no fevers, no chest pain. She feels a little bit heavy in the chest. [place] nauseous, no vomiting, some abdominal discomfort. She is constipated and she takes stool softeners. Denies any blood in stools or black stools. Normal bladder movements. Currently no swelling in the legs, hemodynamically stable. Admission Exam Per Admitting Provider GENERAL: The patient is of moderate build, not in acute distress. VITAL SIGNS: Temperature 36.7, pulse 75, respiratory rate 18, blood pressure 133/77, oxygen 98% on room air. HEENT: Pupils equal, round and reactive to light. Oral mucosa moist. NECK: No JVD, no neck masses. CARDIOVASCULAR: S1 and S2 heard. Regular rate and rhythm. No murmur, no gallop. RESPIRATORY SYSTEM: Normal AP diameter. No accessory muscle use. No wheezing, no crackles. ABDOMEN: Soft. Bowel sounds are present, nontender, no distention. CENTRAL NERVOUS SYSTEM: Cranial nerves II-XII grossly intact. Power 5/5 in all extremities. Sensation intact. No pronator drift. Coordination of movements normal. EXTREMITIES: No edema, no erythema. Principal Diagnosis Acute on chronic dizziness, tachybradycardia syndrome status post pacemaker, macular degeneration Discharge Exam Lying in bed comfortably Constitutional average body habitus; not ill appearing Eyes PERRL, conjunctivae normal, anicteric sclerae ENMT external ear and nose normal, oropharynx normal Respiratory no respiratory distress Auscultation: lungs clear to auscultation bilaterally Cardiovascular Rate/Rhythm: regular rate and regular rhythm; not tachycardic Heart Sounds: normal S1 and normal S2; no murmur Extremities: no edema Gastrointestinal (Abdomen) Inspection/Auscultation: normal bowel sounds; abdomen not distended Percussion/Palpation: abdomen soft; abdomen nontender Psychiatric A+Ox3, euthymic affect Lymphatic no cervical or axillary lymphadenopathy Discharge Data Allergies Allergy/AdvReac Type Severity Reaction Status Date / Time Iodinated Contrast Media Allergy Severe IVP Verified 10/08/21 18:39 DYE~Passed out, ENDED UP IN ICU FOR A WEEK. naproxen [From Aleve] AdvReac Unknown PER PT--MD Verified 10/08/21 18:39 TOLD NOT TO TAKE AGAIN. Consultations 10/08/21 20:19 ED Decision to Admit Stat 10/09/21 08:00 Consult Neurology Routine Ordered Studies 10/08/21 17:40 CT head/brain wo con Stat 10/10/21 10:42 CT head/brain wo con Routine Hospital Course (1) Dizziness: Ongoing symptoms for the last 4 years Managed with [facility], physical therapy and occasional use of meclizine Presented with another attack during this admission Appreciate neurology input and recommendation We will get a CAT scan tomorrow Underwent ultrasound about 2 months ago and those are unremarkable Cannot have MRI and/or CTA due to significant dye allergy We will get PT and OT evaluation and possible discharge tomorrow on meclizine and Zofran Repeat CT scan is unremarkable Carotid ultrasound was done in June without any significant stenosis She has been feeling much better with decreasing dizzy spells Discharged home today and will have an outpatient appointment with the ENT specialist (2) Unsteady gait when walking: Chronic problem and is complicated by dizziness Strongly advised to take precautions to avoid fall (3) Tachy-barbie syndrome: Status post pacemaker (4) Hyperlipidemia: Continue statin (5) Macular degeneration: Has significant visual issues with diplopia and difficulty in focusing This may be contributing her dizziness Was advised to keep appointment with [facility] flake miller as an outpatient Her visual symptoms may be complicating her dizziness as well Total Time Total Time Spent Total Time Spent (In Minutes): 35 minutes Discharge Plan Discharge Items Patient Disposition: Home - Self-Care Reason For Visit: DIZZINESS Discharge Diagnosis: Acute on chronic dizziness, tachybradycardia syndrome status post pacemaker, macular degeneration Condition on Discharge: Fair Activity: Resume your previous activity Non-emergency contact: Primary Care Provider Call non-emergency contact if: you have any medication questions and your symptoms worsen Follow-up/Referrals: Ear, Nose, and Throat [Other] (A referral has been requested to Dr Acosta for you to have an evaluation by the Ear, Nose, and Throat provider. Please discuss this at your upcoming office visit. ) Katie Acosta, DO [Primary Care Provider] - (Date & Time 10/15/2021 2:00 PM Provider Khloe Hollis MD [facility] ) Diet: Heart Healthy Addtl Attending Provider Instructions: Please take precautions to avoid fall Please take additional time to start doing any activities after lying or sitting position Try to drink more fluid Keep appointments with your healthcare providers Pending Studies at Discharge: No Stand-Alone Forms: [facility] [employer], Smoking Cessation Medications and DC Order Prescriptions: New ondansetron 4 mg tablet,disintegrating 4 mg PO BID PRN (Reason: nausea and vomiting) Qty: 20 RF: 0 Continued pantoprazole 40 mg Tablet,Delayed Release (Dr/Ec) 40 mg PO QAM RF: 0 Helotes-3 350 mg-235 mg- 90 mg-597 mg Capsule,Delayed Release(Dr/Ec) 2 cap PO BID RF: 0 magnesium hydroxide [Milk of Magnesia] 400 mg/5 mL Suspension 400 mg PO DAILY PRN (Reason: Constipation) RF: 0 docusate sodium 100 mg capsule 100 mg PO BIDM PRN (Reason: Constipation) RF: 0 Eliquis 5 mg tablet 5 mg PO BID RF: 0 PreserVision AREDS-2 250-90-40-1 mg Capsule 1 tab PO BID RF: 0 loratadine [Claritin] 10 mg Tablet 10 mg PO HS RF: 0 pravastatin 10 mg tablet 5 mg PO HS RF: 0 meclizine 12.5 mg Tablet 12.5 mg PO Q6H PRN (Reason: dizziness) Qty: 30 RF: 0 atenolol 25 mg tablet 12.5 mg PO QPM RF: 0 polyethylene glycol 3350 [Miralax] 17 gram/dose Powder 17 g PO DAILY PRN (Reason: Constipation) RF: 0 Discharge Orders: Discharge Order (Routine); Ordered 10/10/21 Ordered By: Rodolfo Matias Admission Data Admit Date/Time: 10/08/21 21:55 Attending Provider: Rodolfo Matias Admit Provider: Rodolfo Matias Primary Care Provider: Katie Acosta Other Providers: David Britton Kathleen Other Interventions: Discharge Summary Assessment (RN) Last Done: 10/10/21 14:25
== END 2021-10-10 17:30 | disposition home or self-care (01) ==
LOC: ED 17:02 → 2W 17:02